=== PATIENT | male | born 1975 | race Hispanic/Latino ===

== ENCOUNTER 2020-05-16 12:43 | Inpatient (IN) | payer OTHER, SELFPAY ==
[2020-05-16 13:39] LABS: Mean Corpuscular HGB CONC 33.1 g/dL (32.0-36.0); Mean Corpuscular Hemoglobin 40.5 pg (27.0-31.0); Platelet Count 155 thou/uL (130-400); RBC Distribution Width 18.4 % (11.5-14.5); White Blood Cell (WBC) Count 13.1 thou/uL (4.8-10.8)
[2020-05-16 13:45] LABS: ALT (SGPT) 156 U/L (8-55); AST (SGOT) 465 U/L (5-34); Albumin 2.1 g/dL (3.5-5.0); Alkaline Phosphatase 236 U/L (40-110); Anion Gap 16 mmol/L (10-20); BUN (Urea Nitrogen) 33 mg/dL (8.9-20.6); Calc. Creatinine Clearance 0 mL/min (70-130); Carbon Dioxide 23 mmol/L (22-29); Chloride 90 mmol/L (98-107); Estimated GFR-MDRD 32; Globulin 4.9 g/dL (2.4-3.5); Glucose 178 mg/dL (70-105); Potassium 3.4 mmol/L (3.5-5.1); Sodium 126 mmol/L (136-145)
[2020-05-16 13:46] LABS: ALT (SGPT) 155 U/L (8-55); AST (SGOT) 464 U/L (5-34); Albumin 2.1 g/dL (3.5-5.0); Alkaline Phosphatase 235 U/L (40-110); Protein, Total 6.9 g/dL (6.0-8.3)
[2020-05-16 13:55] LABS: Bilirubin, Total 30.3 mg/dL (0.2-1.2)
[2020-05-16 13:56] LABS: Bilirubin, Total 30.2 mg/dL (0.2-1.2)
[2020-05-16 14:12] LABS: Band 3 % (5-11); Eosinophils 1 % (0-10); Lymphocytes 4 % (21-51); MDiff Complete? YES; Macrocytosis MODERATE=16-30 cells (100X) (0-5/hpf); Metamyelocyte 1 % (0-0); Monocytes 8 % (0-10); Neutrophil 82 % (42-75); Platelet Morphology Comment Appears Adequate; Polychromasia SLIGHT = 2-3 cells (100X) (0-2/hpf); Target Cells SLIGHT = 2-5 cells (100X) (0-1/hpf)
[2020-05-16 15:03] LABS: Bilirubin, Direct Greater than 20.0 mg/dL (0.1-0.3)
[2020-05-16] MEDS ORDERED: Lorazepam 1 MG TAB PO PRN (17:10)
[2020-05-16] MEDS ORDERED: Ondansetron PF 4 MG/2 ML Vial IVP PRN (17:10)
[2020-05-16] MEDS ORDERED: Lorazepam 2 MG/ML VIAL SLOW IVP PRN (17:10)
[2020-05-16] MEDS ORDERED: Ondansetron ODT 4 MG TAB PO PRN (17:10)
[2020-05-16 17:12] LABS: Prothrombin Time 113.4 sec (12.0-14.7)
[2020-05-16 17:37] VITALS: BMI 43.0
[2020-05-16] MEDS: cefTRIAXone\\ROCEPHIN 1 GM in Sodium Chloride 0.9% 100 ML IVPB SCH (17:56)
[2020-05-16] MEDS ORDERED: Phytonadione 10 MG/ML AMP PO SCH (18:00)
--- NOTE | 2020-05-16 18:03 | PDOC.EVN ---
Event Note - Event Note Event Note: The INR resulted was reviewed. The PT is too high to calculate a discriminate function. I have called [facility] applications [facility] and spoke with Dr. Fay to make him aware of the patient. He will review the chart and modify orders if needed, and will see the patient in the AM. Should he decompensate, arrangements should be made to transfer to a transplant center.
--- NOTE | 2020-05-16 18:59 | RAD ---
PORTABLE CHEST: 05/16/20 HISTORY: Elevated white count. COMPARISON: 06/23/15 study. Heart size is within normal limits for portable technique. Some slightly increased markings in the maria m ng bases suggest some atelectatic change. No infiltrative process. IMPRESSION: Suggestion of some subsegmental atelectasis in the lung bases. POS: OFF
[2020-05-16] MEDS: Albumin 25% 25 GM/100 ML BOT IVPB SCH (21:11)
--- NOTE | 2020-05-16 22:13 | HP ---
PRIMARY CARE PHYSICIAN: The patient currently does not have a primary care physician. CHIEF COMPLAINT: Feeling weaker and bad for the last month and my eyes are turning yellow. HISTORY OF PRESENT ILLNESS: Mr. Dalton is a very pleasant 44-year-old gentleman, who has a history of alcohol abuse. I actually treated him about 4 years ago for severe alcoholic hepatitis. He says that he had been sober for a good year or more after he left the hospital and had not been drinking. About a year and a half ago, he started drinking again. He says that he normally would drink about a pint of [employer] liquor either every day or every other day. He says over the summer, his drinking got to be more and he started to note that he felt bad about a month ago and was starting to get weaker. He noticed that his eyes started to turn yellow and he says that his skin started looking yellow too. He noticed some dark urine. His abdomen seemed to be gassy and bloated. He denies any nausea or vomiting. No hematemesis. No blood in the stools, but he did note occasional dark stool. No fevers or chills. He denied having any leg swelling but feels like he has decreased muscle tone in his legs. As a result of these findings, he came to the ER for evaluation and he was found to have elevated transaminases as well as a total bilirubin of greater than 30, and he is being admitted for further evaluation and treatment. REVIEW OF SYSTEMS: All systems were reviewed and are negative except for that mentioned in the history of present illness. PAST MEDICAL HISTORY: Significant for alcoholic cirrhosis, dyslipidemia, hypertension, and history of esophageal varices. PAST SURGICAL HISTORY: He has had a hernia repair. ALLERGIES: NO KNOWN DRUG ALLERGIES. SOCIAL HISTORY: He drinks about a pint of Stalin [employer] liquor daily to every other day. He says that he stopped drinking about 2 weeks ago due to feeling bad and starting to feel like it was getting to his conscious. He denies any tobacco use. He is single, has no children and he lives with his uncle. However, he would want his sister, Aurora Verduzco, to be his surrogate decision maker. He is a full code. FAMILY HISTORY: His brother's father had colon cancer. CURRENT MEDICATIONS: None. PHYSICAL EXAMINATION: GENERAL: He is alert and oriented. He appears to be in no acute distress. He is morbidly obese. VITAL SIGNS: Blood pressure was 106/50, heart rate is in the 70s, respiratory rate of 16, and he is afebrile. HEENT: His pupils are equal, round, and reactive. His sclera are bright yellow and jaundice. Throat, he has a mask on. NECK: There is no adenopathy, no bruits. LUNGS: Clear to auscultation. There is no wheezing, no rales, no rhonchi. CARDIOVASCULAR: He has a normal S1 and S2. There is no S3 or S4. No murmurs, clicks, or rubs. ABDOMEN: Distended. There is a positive fluid wave. It is nontender. However, there was no rebound, no guarding. Bowel sounds are present. I could not palpate any spleen. There is no evidence of organomegaly. EXTREMITIES: There is no clubbing or cyanosis. No edema. No joint effusions. No calf tenderness. NEUROLOGICAL: The exam is grossly nonfocal. His muscle strength is 5/5 in both his upper and lower extremities. There is no evidence of any asterixis. SKIN AND INTEGUMENT: Other than being jaundice, there are no skin lesions. LABORATORY DATA: Sodium is 126, potassium is 3.4, chloride is 90, CO2 is 23, BUN of 33, creatinine 2.2, glucose is 178, total bilirubin is 30.3, AST is 465, ALT is 156, alkaline phosphatase is 236, albumin 2.1, direct bilirubin was 20. White blood cell count 13.1, hemoglobin 15, hematocrit is 45.3, and platelet count is 155. MCV was 122. ASSESSMENT: This is a 44-year-old gentleman, who presents with jaundice and elevated transaminases. He has a history of alcohol abuse and likely this represents an alcoholic hepatitis. PLAN: For the alcoholic hepatitis, we will need to get PT and INR in order to calculate a discriminant function to see whether or not he would be a candidate for IV steroids or prednisolone. He needs an abdominal ultrasound to assess for ascites. If there is ascites, then this needs to be sampled to rule out spontaneous bacterial peritonitis. Given that he has a history of cirrhosis, we will go ahead and start him empirically on IV Rocephin pending the results because it may be until tomorrow and before he can have the paracentesis done and if he had significant coagulopathy, this would have to be corrected first. We will also consult Gastroenterology and place him on ASE protocol. Once he is more stabilized, then conversations can be made about abstaining from alcohol and what resources we can give him at discharge. He does have a history of esophageal varices and therefore will need to monitor his H and H closely and he will be placed on IV Protonix. Job ID: [id number]
[2020-05-17] MEDS: Octreotide Acetate 1,250 MCG in Sodium Chloride 0.9% 250 ML 250 ML IVPB SCH (00:52)
[2020-05-17 04:55] LABS: INR-International Normal Ratio 1.9; Prothrombin Time 21.7 sec (12.0-14.7)
[2020-05-17 05:41] LABS: ALT (SGPT) 132 U/L (8-55); AST (SGOT) 390 U/L (5-34); Albumin 2.1 g/dL (3.5-5.0); Alkaline Phosphatase 203 U/L (40-110); Anion Gap 15 mmol/L (10-20); BUN (Urea Nitrogen) 41 mg/dL (8.9-20.6); Bilirubin, Direct Greater than 10.0 mg/dL (0.1-0.3); Calc. Creatinine Clearance 48 mL/min (70-130); Calcium 7.8 mg/dL (7.8-10.44); Carbon Dioxide 25 mmol/L (22-29); Chloride 91 mmol/L (98-107); Estimated GFR-MDRD 19; Glucose 111 mg/dL (70-105); Potassium 3.5 mmol/L (3.5-5.1); Protein, Total 6.3 g/dL (6.0-8.3); Sodium 127 mmol/L (136-145)
[2020-05-17 05:47] LABS: #Basophils 0.1 thou/uL (0.0-0.2); #Eosinphils 0.1 thou/uL (0.0-0.7); #Lymphocytes 1.1 thou/uL (1.20-3.40); #Neutrophils 7.6 thou/uL (1.40-6.50); %Basophils 0.6 % (0.0-1.0); %Eosinophils 1.4 % (0.0-10.0); %Lymphocytes 10.8 % (21.0-51.0); %Neutrophils 77.1 % (42.0-75.0); Band 2 % (5-11); Eosinophils 2 % (0-10); Hemoglobin 13.4 g/dL (14.0-18.0); Hypochromia MODERATE=16-30 cells (100X) (0-5/hpf); Lymphocytes 5 % (21-51); MDiff Complete? YES; Macrocytosis MODERATE=16-30 cells (100X) (0-5/hpf); Mean Corpuscular HGB CONC 33.9 g/dL (32.0-36.0); Mean Corpuscular Hemoglobin 41.9 pg (27.0-31.0); Mean Platelet Volume 9.5 fL (7.4-10.4); Monocytes 6 % (0-10); Neutrophil 85 % (42-75); Platelet Count 110 thou/uL (130-400); Platelet Morphology Comment Appears Decreased; RBC Distribution Width 18.2 % (11.5-14.5); Red Blood Cell (RBC) Count 3.19 mill/uL (4.70-6.10); Target Cells SLIGHT = 2-5 cells (100X) (0-1/hpf); White Blood Cell (WBC) Count 9.9 thou/uL (4.8-10.8)
[2020-05-17 08:05] LABS: Bilirubin Large (Negative); Blood, Urine Small (Negative); Ketone, Urine 15 mg/dL (Negative); Protein, Urine (Dipstick) 100 mg/dL (Neg-Trace); Specific Gravity, Urine 1.025 (1.005-1.030)
[2020-05-17 08:17] LABS: Clarity Turbid (Clear); Leukocyte Unable to Interpret (Negative); Nitrite Negative (Negative)
[2020-05-17 08:21] LABS: Glucose, Urine (Dipstick) Negative (Negative)
[2020-05-17 08:23] LABS: Bacteria/HPF 3+ HPF (None Seen); WBC/HPF 0-3 HPF (0-3)
[2020-05-17] MEDS: Thiamine 100 MG TAB PO SCH (08:58)
[2020-05-17] MEDS: Albumin 25% 25 GM/100 ML BOT IVPB SCH ×4 (08:58→20:24)
[2020-05-17] MEDS: Folic Acid 1 MG TAB PO SCH (08:58)
[2020-05-17] MEDS ORDERED: Phytonadione 10 MG/ML AMP PO SCH (09:15)
[2020-05-17] MEDS ORDERED: Multivit, Therapeutic 1 TAB PO SCH (09:15)
[2020-05-17] MEDS ORDERED: Bacteriostatic Water 30 ML VIAL FS PRN (09:22)
--- NOTE | 2020-05-17 10:49 | ULT ---
ULTRASOUND ABDOMEN LIMITED: HISTORY: Evaluate for ascites. COMPARISON: None. FINDINGS: There is some small volume free fluid in the pelvis and abdomen. There is a pocket of fluid in the l eft upper quadrant. IMPRESSION: Small volume free fluid in the pelvis and abdomen with the greatest pocket in the left upper quadrant . There is likely adequate fluid for a diagnostic paracentesis, although a therapeutic paracentesis would not be very beneficial. POS: HOME
--- NOTE | 2020-05-17 11:04 | ULT ---
ULTRASOUND RENAL BILATERAL STANDARD: HISTORY: Acute kidney injury. COMPARISON: None. FINDINGS: Real-time, field scale, and color evaluation of the kidneys and urinary bladder was performed. The urinary bladder is not well seen. The right kidney measures 11.2 x 6.1 x 7.2 cm and the left kid paola measures 11.7 x 7 x 6.5 cm. No renal mass, hydronephrosis, or abnormal calcifications. IMPRESSION: 1. No evidence for obstructive uropathy. 2. Small volume free fluid in the abdomen and pelvis. POS: HOME
[2020-05-17 11:09] LABS: Magnesium 2.5 mg/dL (1.6-2.6); Phosphorus 3.7 mg/dL (2.3-4.7)
[2020-05-17] MEDS ORDERED: Sodium Bicarbonate 2.5 MEQ/5 ML VIAL ONE (11:13)
[2020-05-17] MEDS ORDERED: Lidocaine 1% PF 5 ML VIAL ONE (11:13)
[2020-05-17] MEDS ORDERED: Sodium Chloride 0.9% 10 ML ONE (11:26)
--- NOTE | 2020-05-17 11:39 | ULT ---
US Paracentesis with Imaging History: Ascites Comparison: Ultrasound same day Findings: Patient was brought to the ultrasound suite. All questions were answered. Informed consent obtained. Timeout performed. The patient's right upper quadrant was prepped and draped in normal sterile fashion. After adequate l ocal anesthesia, using a 5 [place] catheter the peritoneal space was accessed. 1600 mL of yellow-colored fluid was removed. Patient tolerated the procedure well without complication. Impression: Technically successful ultrasound-guided paracentesis for diagnostic and therapeutic purp oses.
[2020-05-17 12:33] LABS: SARS-CoV-2 MS2 Positive; SARS-CoV-2 N Gene Negative; SARS-CoV-2 S Gene Negative; SARS-CoV-2 by NAA Not Detected (NotDetected); SARS-CoV-2 orf1ab Negative
[2020-05-17 13:05] LABS: HBSAB Concentration Less than 8.00 mIU/mL; HBSAg Index 0.16 S/CO (0-0.99); Hep B Core Total Ab Non-Reactive (NonReactive); Hep B Surf AB Non-Reactive (NonReactive); Hep B Surf Ag Non-Reactive S/CO (NonReactive); Hep C IgG Ab Non-Reactive (NonReactive); Hep C Index 0.32 S/CO (0-0.79)
[2020-05-17 14:32] LABS: RBC Count-Automated (BF) 340 /cu.mm; WBC/Nucleated-Auto (BF) 306 uL
[2020-05-17 14:57] LABS: BF Color Yellow; Body Fluid Source Ascites Body Fluid; Clarity Hazy (Clear); Tube # EDTA
[2020-05-17 15:53] LABS: BF Segmented Neutrophils 20 %; Cell Count Non Hematic 63 %; Lymphocytes 17 %
[2020-05-17] MEDS: Midodrine HCl 5 MG TAB PO SCH ×2 (16:09→20:28)
--- NOTE | 2020-05-17 17:14 | PDOC.HOSPP ---
- Subjective Encounter Date: 05/17/20 Encounter Time: 10:30 Subjective: Patient seen and examined for severe alcoholic hepatitis with acute kidney injury. Denies any nausea, vomiting, hematemesis or melena. Abdomen distended. Denies any abdominal pain. No fever or chills reported. - Objective Vital Signs & Weight: Vital Signs (12 hours) Temp Pulse Resp BP BP BP Pulse Ox 05/17/20 15:45 98.3 F 86 18 101/56 L 93 L 05/17/20 12:05 98.0 F 90 15 98/52 L 98/52 L 96 05/17/20 07:06 98.1 F 81 18 87/48 L 87/48 L 93 L Weight Admit Weight 282 lb 12.8 oz Weight 282 lb 12.8 oz Result Diagrams: 05/17/20 04:33 05/17/20 04:33 Additional Labs: Laboratory Tests 05/17/20 05/17/20 05/17/20 04:33 04:33 12:07 Total Bilirubin 28.0 H Direct Bilirubin Greater than 10.0 H AST 390 H ALT 132 H Alkaline Phosphatase 203 H Tumor Marker AFP 3.0 Hep Bs Antigen Non-Reactive Hep Bs Antibody Non-Reactive Hep B Core Total Ab Non-Reactive Hepatitis C Antibody Non-Reactive Radiology Reviewed by me: Yes (Chest x-ray negative for infiltrate) EKG Reviewed by me: Yes (Sinus rhythm on telemetry) Hospitalist ROS - Review of Systems Respiratory: denies: cough, dry, shortness of breath, hemoptysis, SOB with excertion, pleuritic pain, sputum, wheezing, other Cardiovascular: denies: chest pain, palpitations, orthopnea, paroxysmal noc. dyspnea, edema, light headedness, other All other systems reviewed; all pertinent +/- noted in HPI/Subj - Medication Medications: Active Medications Generic Name Dose Route Start Last Admin Trade Name Freq PRN Reason Stop Dose Admin Albumin Human 25 gm 05/17/20 09:00 05/17/20 16:09 Albumin 25% IVPB 05/18/20 03:01 25 gm Q6H PARKER Administration Folic Acid 1 mg 05/17/20 09:00 05/17/20 08:58 Folvite PO 1 mg DAILY PARKER Administration Ceftriaxone Sodium 1 gm/ 100 mls @ 200 mls/hr 05/16/20 18:00 05/16/20 17:56 Sodium Chloride IVPB 100 mls Q24HR PARKER Administration Octreotide Acetate 1,250 mcg/ 251.25 mls @ 10.05 mls/hr 05/16/20 18:00 00:52 Sodium Chloride IVPB 251.25 mls INF PARKER Administration 50 MCG/HR Midodrine 5 mg 05/17/20 15:00 05/17/20 16:09 Proamatine PO 5 mg TID PARKER Administration Pantoprazole Sodium 40 mg 05/16/20 18:00 05/16/20 17:56 Protonix PO 40 mg 1800 PARKER Administration Thiamine HCl 100 mg 05/17/20 09:00 05/17/20 08:58 Thiamine PO 100 mg DAILY PARKER Administration - Exam General Appearance: ill appearing Neck: supple, no JVD Heart: RRR, no gallops, no rubs, normal peripheral pulses Respiratory: CTAB, no rales, no ronchi, normal chest expansion Gastrointestinal: soft, normal bowel sounds, no guarding, no rigidity, tender to palpation (Mild generalized), distended Extremities: no cyanosis, no clubbing, 1+ LE edema Neurological: no new deficit Psychiatric: normal affect, A&O x 3 Hosp A/P - Plan DVT proph w/SCDs Generalized weakness Acute liver failure Severe alcoholic hepatitis with elevated discriminant function Acute kidney injurysuspected hepatorenal syndrome Hyponatremia Hypokalemia Portal hypertensive gastropathy with last EGD in 2016 Coagulopathy due to liver failure Morbid obesity with a BMI of 43 Chronic alcoholism Hypertension Dyslipidemia Plan: 05/17 Continue empiric antibiotic with octreotide. Continue IV albumin. Paracentesis today. Will send fluid for cell count, differential, culture, glucose, albumin, and protein. Case discussed with gastroenterology and nephrology. Recheck labs in a.m. Continue thiamine with folic acid. Vitamin K to correct coagulopathy. Transfer to medical. Monitor for alcohol withdrawal. Continue alcohol withdrawal protocol.
[2020-05-17] MEDS: cefTRIAXone\\ROCEPHIN 1 GM in Sodium Chloride 0.9% 100 ML IVPB SCH (17:26)
--- NOTE | 2020-05-17 18:51 | CON ---
DATE OF CONSULTATION: 05/17/2020 CONSULTING PHYSICIAN: Dr. Giron REASON FOR CONSULTATION: Acute kidney injury. REASON FOR ADMISSION: Swelling. HISTORY OF PRESENT ILLNESS: This is a 44-year-old male with history of alcohol use, alcoholic cirrhosis, hypertension, came to the hospital with swelling, was found to have elevated creatinine and Nephrology consulted. The patient is having tap also this morning. No fever or chills. PAST MEDICAL HISTORY: Positive for alcoholic cirrhosis, hyperlipidemia, hypertension, esophageal varices. PAST SURGICAL HISTORY: Hernia repair. HOME MEDICATIONS: Reviewed. ALLERGIES: NO KNOWN DRUG ALLERGIES. SOCIAL HISTORY: He is alcoholic and single, no children. FAMILY HISTORY: Positive for colon cancer. REVIEW OF SYSTEMS: CONSTITUTIONAL: Negative for weight loss or gain, ability to conduct usual activities. SKIN: Negative for rash, itching. EYES: Negative for double vision, pain. ENT/MOUTH: Negative for nose bleeding, neck stiffness, pain, tenderness. CARDIOVASCULAR: Negative for palpitations, dyspnea on exertion, orthopnea. RESPIRATORY: Negative for shortness of breath, wheezing, cough, hemoptysis, fever or night sweats. GASTROINTESTINAL: Negative for poor appetite, abdominal pain, heartburn, nausea, vomiting, constipation, or diarrhea. GENITOURINARY: Negative for urgency, frequency, dysuria, nocturia. MUSCULOSKELETAL: Negative for pain, swelling. NEUROLOGIC/PSYCHIATRIC: Negative for anxiety, depression. ALLERGY/IMMUNOLOGIC: Negative for skin rash, bleeding tendency. PHYSICAL EXAMINATION: GENERAL: This is a well-built male, in no apparent distress. VITAL SIGNS: Temperature pulse 90, respiratory rate 18, blood pressure 98/52. HEENT: Atraumatic, normocephalic. Oral mucosa is moist. NECK: Supple. CV: S1, S2. Rate and rhythm regular. RESPIRATORY: Clear. GI: Abdomen is soft. MUSCULOSKELETAL: 2+ edema. DERMATOLOGIC: No skin rash. NEUROLOGICAL: Alert and awake. PSYCHIATRIC: Mood and affect normal. LABORATORY DATA: Hemoglobin is 13.4. Potassium 3.5, sodium is 127, BUN is 41, and creatinine is 3.4. Albumin 2.1. ASSESSMENT AND PLAN: 1. Acute kidney injury, most likely secondary to hepatorenal syndrome with poor prognosis, given hyponatremia and renal failure. Plan is to try albumin 25 g q.6 x8 doses and monitor renal function. Could consider midodrine and octreotide. Follow up with GI also. 2. Hyponatremia. 3. Hypokalemia, better. 4. Hyperbilirubinemia. 5. Elevated liver enzymes. 6. Hypoalbuminemia. 7. Anemia. 8. Coagulopathy. 9. Alcoholic cirrhosis. 10. Edema. 11. Ascites. Prognosis is very poor. We will try albumin. No significant improvement. We will follow up with GI also. Avoid nephrotoxins and diuretics at this point. We will follow. Thank you for the consult. Job ID: [id number]
--- NOTE | 2020-05-17 20:26 | CON ---
DATE OF CONSULTATION: 05/17/2020 REASON FOR CONSULTATION: Alcoholic hepatitis and cirrhosis. CONSULTING PROVIDER: Prabhakar Joseph MD HISTORY OF PRESENT ILLNESS: The patient is a 44-year-old male, with past medical history of hyperlipidemia, hypertension, and prior episode of alcoholic hepatitis and cirrhosis complicated by esophageal varices, presenting with complaints of weakness and malaise. The patient initially presented to the hospital with complaints of increased generalized weakness and malaise that had been present for the last month. On interviewing the patient, he states that approximately 1 month ago, he was attending multiple birthday parties with his family and had increasing amounts of alcohol consumed during those parties. After those parties, he noticed that he began feeling much more bloated with increased flatulence in addition to having the occurrence of change in his bowel habits. Over the last few weeks, he also noticed that his skin and his eyes began more yellow in coloration until finally the patient had 3 to 4 semi-solid black stools shortly before admission, which prompted him to seek healthcare assistance. During the same time period, he also endorsed an increased weight loss of approximately 50 pounds since January of this year, but had been attempting to significantly change his diets by significant reduction and consumption of red meats and eating more fruits and vegetables. He also states that he had been drinking about a pint of [employer] either everyday or every other day and drinking approximately 12 beers daily per day on the weekends. He also adds that his last drink was approximately 2 weeks ago (of note, the patient was admitted to the hospital in December 2015 with very similar complaints of general malaise and weakness with severe alcoholic hepatitis at that time, he responded well to medical management with prednisolone with followup in the GI clinic showing improvement in his clinical and laboratory status). He did also have an EGD performed at that time on December 13, 2015, which showed small (grade 1) esophageal varices in addition to portal hypertensive gastropathy and LA grade A reflux mediated erosive esophagitis. There was no mention of gastric varices during that examination. REVIEW OF SYSTEMS: A 10-category review of systems was obtained with all responses negative, except for the pertinent positives as listed in HPI. PAST MEDICAL HISTORY: As per HPI. PAST SURGICAL HISTORY: Inguinal hernia repair. FAMILY HISTORY: He denied any GI malignancies, but there was mention in the chart of his brother's father having colon cancer (unclear if this is a stepbrother). OUTPATIENT MEDICATIONS: None. ALLERGIES: NO KNOWN DRUG ALLERGIES. PHYSICAL EXAMINATION: VITAL SIGNS: Temperature 98.3, pulse 86, blood pressure 101/56, respiratory rate 18, and saturating 93% on room air. GENERAL: The patient is lying in bed, in no acute distress. Alert and oriented x4. HEENT: Normocephalic and atraumatic. Positive scleral icterus as well as yellowing of his face and skin. NECK: Supple. No JVD noted. CARDIOVASCULAR: Regular rate and rhythm with no discernible murmurs, gallops, or rubs. RESPIRATORY: Clear to auscultation bilaterally with no discernible wheezes or rales. ABDOMEN: Normoactive bowel sounds. Soft. Moderate abdominal distention with possible shifting dullness. No tenderness to palpation. EXTREMITIES: Trace bilateral lower extremity edema only in the feet. LABORATORY DATA: CBC with a white blood cell count of 9.9, hemoglobin 13.4, hematocrit 39.5, and platelets 110. INR 1.9. Chemistry with a sodium of 127, potassium 3.5, chloride 91, CO2 of 25, BUN 41, creatinine 3.46, glucose 111, AST 390, ALT 132, alkaline phosphatase 203, total bilirubin 28, with a calculated MELD score of 39. IMAGING DATA: Right upper quadrant ultrasound was obtained on May 17, 2020, which showed some small free-fluid within the pelvis and abdomen with a pocket of fluid in the left upper quadrant. He also underwent paracentesis on May 17, 2020, with approximately 1.6 L of fluid removed. Renal ultrasound was obtained on May 17, 2020, which showed no evidence of obstructive uropathy and normal appearance of the kidneys. ASSESSMENT AND PLAN: The patient is a 44-year-old male, with past medical history of hyperlipidemia, hypertension, prior alcoholic hepatitis and cirrhosis complicated by esophageal varices, now presenting with recurrence of alcoholic hepatitis in addition to cirrhosis with ascites and lower extremity edema. Alcoholic hepatitis. On chart review, the patient had a bout of severe alcoholic hepatitis in November of 2015, but responded well to prednisolone therapy x30 days with outpatient followup in the GI Clinic showing normalization of his LFTs and renal function (the patient had an elevated creatinine during that admission that got as high as 4). He is now presenting with a repeat bout of what appears to be alcoholic hepatitis as evidenced by his elevated bilirubin, INR, and AST to ALT ratio in roughly ratio. At the current time, his calculated MELD score is 39 with a discriminant function much higher than 32. He has had blood cultures, chest x-ray, and urinalysis that have been negative for infection thus far. RECOMMENDATIONS: 1. We would continue patient on albumin administration three times daily. 2. Continue patient on octreotide drip in light of possible hepatorenal syndrome related to his alcoholic hepatitis. 3. We would continue the patient on PPI daily. 4. Agree with administration of vitamin K as part of reversal of the patient's coagulopathy. 5. We would start the patient on methylprednisolone 40 mg daily given his discriminant function higher than 32 and no evidence of chronic or active infection. 6. We would start the patient on midodrine 5 mg t.i.d. and advance to 10 mg tomorrow in light of possible hepatorenal syndrome. 7. We would agree with consultation of Nephrology Service for further recommendations regarding acute kidney injury/worsening renal function. 8. Given stable H and H thus far, upper endoscopy is not indicated at this time. Given his significantly elevated MELD score of 39, his long-term prognosis is extremely poor. We will continue to follow, but would not be unexpected during this admission. Job ID: [id number]
[2020-05-17] MEDS: Cyanocobalamin (Vitamin B-12) 1,000 MCG TAB PO SCH (20:28)
[2020-05-17] MEDS: pyridOXINE 50 MG (B6) TAB PO SCH (20:28)
[2020-05-18] MEDS: Octreotide Acetate 1,250 MCG in Sodium Chloride 0.9% 250 ML 250 ML IVPB SCH (00:19)
[2020-05-18] MEDS: Albumin 25% 25 GM/100 ML BOT IVPB SCH ×4 (03:03→21:02)
[2020-05-18 05:51] LABS: INR-International Normal Ratio 1.8; Prothrombin Time 21.2 sec (12.0-14.7)
[2020-05-18 06:00] LABS: ALT (SGPT) 113 U/L (8-55); AST (SGOT) 307 U/L (5-34); Albumin 2.7 g/dL (3.5-5.0); Alkaline Phosphatase 166 U/L (40-110); Protein, Total 6.1 g/dL (6.0-8.3)
[2020-05-18 06:12] LABS: Anion Gap 16 mmol/L (10-20); BUN (Urea Nitrogen) 53 mg/dL (8.9-20.6); Calc. Creatinine Clearance 30 mL/min (70-130); Calcium 7.9 mg/dL (7.8-10.44); Carbon Dioxide 20 mmol/L (22-29); Chloride 91 mmol/L (98-107); Estimated GFR-MDRD 11; Glucose 130 mg/dL (70-105); Magnesium 2.4 mg/dL (1.6-2.6); Phosphorus 3.5 mg/dL (2.3-4.7); Potassium 3.4 mmol/L (3.5-5.1); Sodium 124 mmol/L (136-145)
[2020-05-18 06:14] LABS: Bilirubin, Total 35.4 mg/dL (0.2-1.2)
[2020-05-18 06:19] LABS: #Basophils 0.1 thou/uL (0.0-0.2); #Eosinphils 0.2 thou/uL (0.0-0.7); #Lymphocytes 1.5 thou/uL (1.20-3.40); #Monocytes 0.8 thou/uL (0.11-0.59); #Neutrophils 7.5 thou/uL (1.40-6.50); %Basophils 0.7 % (0.0-1.0); %Lymphocytes 14.6 % (21.0-51.0); %Neutrophils 74.7 % (42.0-75.0); Elliptocytes SLIGHT = 2-5 cells (100X) (0-1/hpf); Eosinophils 1 % (0-10); Hemoglobin 12.7 g/dL (14.0-18.0); Lymphocytes 7 % (21-51); MDiff Complete? YES; Macrocytosis MODERATE=16-30 cells (100X) (0-5/hpf); Mean Corpuscular Hemoglobin 41.2 pg (27.0-31.0); Mean Platelet Volume 9.9 fL (7.4-10.4); Monocytes 6 % (0-10); Neutrophil 86 % (42-75); Platelet Count 100 thou/uL (130-400); Platelet Morphology Comment Appears Decreased; RBC Distribution Width 18.6 % (11.5-14.5); Red Blood Cell (RBC) Count 3.09 mill/uL (4.70-6.10); Target Cells SLIGHT = 2-5 cells (100X) (0-1/hpf)
[2020-05-18 07:12] LABS: Bilirubin, Direct Greater than 20.0 mg/dL (0.1-0.3)
[2020-05-18] MEDS: Thiamine 100 MG TAB PO SCH (08:31)
[2020-05-18] MEDS: Folic Acid 1 MG TAB PO SCH (08:31)
[2020-05-18] MEDS: Midodrine HCl 5 MG TAB PO SCH ×3 (08:31→21:03)
[2020-05-18] MEDS ORDERED: Phytonadione 10 MG/ML AMP PO SCH (09:00)
[2020-05-18] MEDS ORDERED: methylPREDNISolone Sod Succ 40 MG VIAL IVP SCH (09:00)
[2020-05-18] MEDS ORDERED: Midodrine HCl 5 MG TAB PO SCH (09:00)
[2020-05-18] MEDS ORDERED: Multivit, Therapeutic 1 TAB PO SCH (09:00)
--- NOTE | 2020-05-18 12:27 | PDOC.HOSPP ---
- Subjective Encounter Date: 05/18/20 Encounter Time: 11:00 - Objective Vital Signs & Weight: Vital Signs (12 hours) Temp Pulse Resp BP BP Pulse Ox 05/18/20 08:00 98.3 F 83 18 130/63 94 L 05/18/20 04:00 97.9 F 80 18 121/60 121/60 92 L Weight Admit Weight 282 lb 12.8 oz Weight 282 lb 12.8 oz I&O: 05/17/20 05/18/20 05/19/20 06:59 06:59 06:59 Intake Total 432 Output Total 300 Balance 132 Result Diagrams: 05/18/20 05:24 05/18/20 05:24 Hospitalist ROS - Medication Medications: Active Medications Generic Name Dose Route Start Last Admin Trade Name Keny PRN Reason Stop Dose Admin Albumin Human 25 gm 05/18/20 09:00 05/18/20 09:26 Albumin 25% IVPB 05/19/20 09:01 25 gm Q6H PARKER Administration Cyanocobalamin 1,000 mcg 05/17/20 21:00 05/17/20 20:28 Vitamin B-12 PO 1,000 mcg HS PARKER Administration Folic Acid 1 mg 05/17/20 09:00 05/18/20 08:31 Folvite PO 1 mg DAILY PARKER Administration Ceftriaxone Sodium 1 gm/ 100 mls @ 200 mls/hr 05/16/20 18:00 05/17/20 17:26 Sodium Chloride IVPB 100 mls Q24HR PARKER Administration Octreotide Acetate 1,250 mcg/ 251.25 mls @ 10.05 mls/hr 05/16/20 18:00 00:19 Sodium Chloride IVPB 251.25 mls INF PARKER Administration 50 MCG/HR Lactulose 10 gm 05/18/20 09:00 05/18/20 09:12 Lactulose PO 10 gm BID PARKER Administration Methylprednisolone Sodium Succinate 40 mg 05/18/20 09:00 05/18/20 08:32 Solu-Medrol IVP 40 mg DAILY PARKER Administration Multivitamins 1 tab 05/18/20 09:00 05/18/20 08:31 Theragran PO 1 tab DAILY PARKER Administration Pantoprazole Sodium 40 mg 05/16/20 18:00 05/17/20 17:26 Protonix PO 40 mg 1800 PARKER Administration Phytonadione 5 mg 05/18/20 09:00 05/18/20 08:32 Aquamephyton PO 05/19/20 09:01 5 mg DAILY PARKER Administration Pyridoxine HCl 50 mg 05/17/20 21:00 05/17/20 20:28 Vitamin B 6 PO 50 mg HS PARKER Administration Thiamine HCl 100 mg 05/17/20 09:00 05/18/20 08:31 Thiamine PO 100 mg DAILY PARKER Administration Hosp A/P - Plan Generalized weakness Acute liver failure Severe alcoholic hepatitis with elevated discriminant function Acute kidney injurysuspected hepatorenal syndrome Hyponatremia Hypokalemia Portal hypertensive gastropathy with last EGD in 2015 Coagulopathy due to liver failure Morbid obesity with a BMI of 43 Chronic alcoholism Hypertension Dyslipidemia Aurora (sister) [phone] Plan: 05/17 Continue empiric antibiotic with octreotide. Continue IV albumin. Paracentesis today. Will send fluid for cell count, differential, culture, glucose, albumin, and protein. Case discussed with gastroenterology and nephrology. Recheck labs in a.m. Continue thiamine with folic acid. Vitamin K to correct coagulopathy. Transfer to medical. Monitor for alcohol withdrawal. Continue alcohol withdrawal protocol.
--- NOTE | 2020-05-18 12:55 | PDOC.HOSPP ---
- Subjective Encounter Date: 05/18/20 Encounter Time: 11:00 Subjective: Patient seen and examined for acute liver failure. Mild generalized abdominal pain without any nausea. Had bowel movement last night which was formed. Denies any hematemesis, melena or hematochezia. Mentation at baseline. - Objective Vital Signs & Weight: Vital Signs (12 hours) Temp Pulse Resp BP BP Pulse Ox 05/18/20 08:00 98.3 F 83 18 130/63 94 L 05/18/20 04:00 97.9 F 80 18 121/60 121/60 92 L Weight Admit Weight 282 lb 12.8 oz Weight 282 lb 12.8 oz I&O: 05/17/20 05/18/20 05/19/20 06:59 06:59 06:59 Intake Total 432 Output Total 300 Balance 132 Result Diagrams: 05/18/20 05:24 05/18/20 05:24 Additional Labs: Microbiology 05/17/20 11:30 Ascites Fluid Body Fluid Culture - Preliminary 05/17/20 07:25 Urine clean catch Urine Culture - Preliminary NO GROWTH AT 24 HOURS 05/16/20 18:21 Venous blood - Right Hand Blood Culture - Preliminary NO GROWTH AT 48 HOURS 05/16/20 18:21 Venous blood - Left Arm Blood Culture - Preliminary NO GROWTH AT 48 HOURS Laboratory Tests 05/16/20 05/17/20 05/17/20 17:20 08:51 08:51 PT INR Total Bilirubin Direct Bilirubin AST ALT Alkaline Phosphatase Fluid Clarity Fluid WBC (Auto) Fluid RBC (Auto) Fluid Seg Neutrophil % Fluid Glucose 124 Fluid Total Protein Less than 1.0 COVID-19 PCR Not Detected Hep Bs Antigen Hep Bs Antibody 05/17/20 05/17/20 05/18/20 11:30 12:07 05:24 PT 21.2 H INR 1.8 Total Bilirubin Direct Bilirubin AST ALT Alkaline Phosphatase Fluid Clarity Hazy H Fluid WBC (Auto) 306 Fluid RBC (Auto) 340 Fluid Seg Neutrophil % 20 Fluid Glucose Fluid Total Protein COVID-19 PCR Hep Bs Antigen Non-Reactive Hep Bs Antibody Non-Reactive 05/18/20 05:24 PT INR Total Bilirubin 35.4 H Direct Bilirubin Greater than 20.0 H AST 307 H ALT 113 H Alkaline Phosphatase 166 H Fluid Clarity Fluid WBC (Auto) Fluid RBC (Auto) Fluid Seg Neutrophil % Fluid Glucose Fluid Total Protein COVID-19 PCR Hep Bs Antigen Hep Bs Antibody Radiology Reviewed by me: Yes (Paracentesis reviewed) Hospitalist ROS - Review of Systems Respiratory: denies: cough, dry, shortness of breath, hemoptysis, SOB with excertion, pleuritic pain, sputum, wheezing, other Cardiovascular: denies: chest pain, palpitations, orthopnea, paroxysmal noc. dyspnea, edema, light headedness, other - Medication Medications: Active Medications Generic Name Dose Route Start Last Admin Trade Name Freq PRN Reason Stop Dose Admin Albumin Human 25 gm 05/18/20 09:00 05/18/20 09:26 Albumin 25% IVPB 05/19/20 09:01 25 gm Q6H PARKER Administration Cyanocobalamin 1,000 mcg 05/17/20 21:00 05/17/20 20:28 Vitamin B-12 PO 1,000 mcg HS PARKER Administration Folic Acid 1 mg 05/17/20 09:00 05/18/20 08:31 Folvite PO 1 mg DAILY PARKER Administration Ceftriaxone Sodium 1 gm/ 100 mls @ 200 mls/hr 05/16/20 18:00 05/17/20 17:26 Sodium Chloride IVPB 100 mls Q24HR PARKER Administration Octreotide Acetate 1,250 mcg/ 251.25 mls @ 10.05 mls/hr 05/16/20 18:00 00:19 Sodium Chloride IVPB 251.25 mls INF PARKER Administration 50 MCG/HR Lactulose 10 gm 05/18/20 09:00 05/18/20 09:12 Lactulose PO 10 gm BID PARKER Administration Methylprednisolone Sodium Succinate 40 mg 05/18/20 09:00 05/18/20 08:32 Solu-Medrol IVP 40 mg DAILY PARKER Administration Multivitamins 1 tab 05/18/20 09:00 05/18/20 08:31 Theragran PO 1 tab DAILY PARKER Administration Pantoprazole Sodium 40 mg 05/16/20 18:00 05/17/20 17:26 Protonix PO 40 mg 1800 PARKER Administration Phytonadione 5 mg 05/18/20 09:00 05/18/20 08:32 Aquamephyton PO 05/19/20 09:01 5 mg DAILY PARKER Administration Pyridoxine HCl 50 mg 05/17/20 21:00 05/17/20 20:28 Vitamin B 6 PO 50 mg HS PARKER Administration Thiamine HCl 100 mg 05/17/20 09:00 05/18/20 08:31 Thiamine PO 100 mg DAILY PARKER Administration - Exam General Appearance: ill appearing General - other findings: Jaundice Neck: supple, no JVD Heart: RRR, no gallops, no rubs, normal peripheral pulses Respiratory: CTAB, no wheezes, no rales Respiratory - other findings: Diminished air entry at bases Gastrointestinal: soft, no guarding, no rigidity, distended Extremities: no cyanosis, no clubbing Neurological: no new deficit Psychiatric: normal affect, A&O x 3 Hosp A/P - Plan DVT proph w/SCDs Generalized weakness Acute liver failure Severe alcoholic hepatitis with elevated discriminant function Acute kidney injury due to hepatorenal syndrome Hyponatremia Hypokalemia History of alcoholic cirrhosis Portal hypertensive gastropathy with last EGD in 2015 Coagulopathy due to liver failure Morbid obesity with a BMI of 43 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 Continue IV ceftriaxone for SBP prophylaxis. SBP ruled out. Midodrine dose increased. Continue thiamine, folic acid with multivitamin. Monitor for alcohol withdrawal. Renal function worsening. Case discussed with nephrology and gastroenterology. Not a candidate for transfer to transplant candidate due to recent alcohol abuse. With patient's permission I discussed with sister Aurora sister [phone]. Patient's sister and mother are currently in [place]. They may come to visit him due to worsening prognosis. 05/17 Continue empiric antibiotic with octreotide. Continue IV albumin. Paracentesis today. Will send fluid for cell count, differential, culture, glucose, albumin, and protein. Case discussed with gastroenterology and nephrology. Recheck labs in a.m. Continue thiamine with folic acid. Vitamin K to correct coagulopathy. Transfer to medical. Monitor for alcohol withdrawal. Continue alcohol withdrawal protocol.
--- NOTE | 2020-05-18 14:34 | PRG ---
DATE OF SERVICE: 05/18/2020 SUBJECTIVE: Patient was seen and examined at bedside and overnight events noted. Patient denies any shortness of breath or chest pain or palpitation. No history of nausea or vomiting or diarrhea or fever or chills or cramps. OBJECTIVE: GENERAL: This is a well-built male, in no apparent distress. VITAL SIGNS: Temperature 97.8. Heart Rate 84. Respiratory rate blood pressure 132/64. HEENT: Icterus present. NECK: Supple. CARDIOVASCULAR: S1, S2 heard. Rate and rhythm regular. RESPIRATORY: Clear to auscultation. GASTROINTESTINAL: Distended. MUSCULOSKELETAL: 2+ edema. DERMATOLOGIC: Icterus present. NEUROLOGIC: Alert and awake and oriented x3. No focal neurologic deficits. Moving all the extremities. PSYCHIATRIC: Mood and affect normal. LABORATORY DATA: Sodium 125, potassium 3.4, BUN is 53, and creatinine is 5.5. ASSESSMENT AND PLAN: 1. Acute kidney injury, getting worse secondary to hepatorenal syndrome, not responding to albumin and other measures including midodrine and octreotide. We will follow. GI is following too. The patient has an elevated MELD score, which puts him high risk for mortality. I discussed with Dr. Giron and is going to convey that to the family. I did talk with the patient also. 2. Hyponatremia. 3. Hypokalemia. 4. Hyperbilirubinemia. 5. Elevated liver enzymes and coagulopathy. 6. Hypoalbuminemia. 7. Anemia. 8. Alcoholic cirrhosis. 9. Ascites. 10. Edema. 11. Anasarca. Prognosis is extremely poor with high risk for mortality. Continue discussion with the family. We will follow. Job ID: [id number]
[2020-05-18] MEDS: cefTRIAXone\\ROCEPHIN 1 GM in Sodium Chloride 0.9% 100 ML IVPB SCH (17:15)
--- NOTE | 2020-05-18 17:58 | PRG ---
DATE OF SERVICE: 05/18/2020 REASON FOR CONSULTATION: Alcoholic hepatitis and cirrhosis. SUBJECTIVE: The patient had no acute events or problems overnight. He did have some mild tremulousness this morning, but it seems to resolve this afternoon. He also has had some more loose/diarrhea like bowel movements, but this was in association with administration of lactulose. Otherwise, he states that he has had some mild abdominal discomfort this morning, but resolved with having a bowel movement. Currently, he denies any nausea, vomiting, fevers, chills, hematemesis, melena, hematochezia, dysphagia, or odynophagia. OBJECTIVE: VITAL SIGNS: Temperature 98.2, pulse 84, blood pressure 130/62, respiratory rate 18, saturating 95% on room air. GENERAL: The patient was lying in bed, in no acute distress. Alert and oriented x4. CARDIOVASCULAR: Regular rate and rhythm. RESPIRATORY: Clear to auscultation bilaterally. ABDOMEN: Normoactive bowel sounds. Soft. Moderate abdominal distention. No tenderness to palpation. EXTREMITIES: Trace bilateral lower extremity edema, only in the feet. LABORATORY DATA: CBC with a white blood cell count of 10, hemoglobin 12.7, hematocrit 38.6, platelets 100. INR 1.8. Chemistry with a sodium of 124, potassium 3.4, chloride 91, CO2 of 20, BUN 53, creatinine 5.52, glucose 130, AST 307, ALT 113, alkaline phosphatase 166, total bilirubin 35.4. Calculated MELD score of 40. IMAGING DATA: No current GI imaging is available for review. ASSESSMENT AND PLAN: The patient is a 44-year-old male with past medical history of hyperlipidemia, hypertension, prior alcoholic hepatitis and cirrhosis, complicated by esophageal varices, now presenting with recurrent alcoholic hepatitis. Alcoholic hepatitis: The patient is presenting with a 2-week long history of general weakness/malaise with significantly elevated LFTs on admission, especially in terms of his INR, total bilirubin. However, with administration of oral vitamin K, his INR has significantly been reduced to 1.8 today, although he continues to have a very elevated total bilirubin and a calculated MELD score of 40. In addition to the above, the patient continues to have worsening renal function with a creatinine of 5.52 today, strongly concerning for the presence of hepatorenal syndrome. At this time, the patient is in critical condition when it comes to his liver with an estimated 90-day mortality greater than 70% at this time. Based on his unfunded status, recent drinking history (last drink was approximately 2 weeks ago), and probable presence of hepatorenal syndrome, the patient is likely not a transplant candidate. RECOMMENDATIONS: 1. Continue albumin administration 3 times daily. 2. Continue octreotide drip in light of possible hepatorenal syndrome. 3. Continue PPI daily. 4. We will increase the midodrine to 10 mg t.i.d. in light of possible hepatorenal syndrome. 5. Continue methylprednisolone 40 mg daily as part of treatment for alcoholic hepatitis. 6. We would defer to Nephrology Service for further recommendations regarding kidney injury/worsening renal function. 7. Given his worsening renal function, I would not recommend administration of diuretics for either ascites or lower extremity edema at this time. Given his significantly elevated MELD score of 40, his long-term prognosis is extremely poor. Consideration of evaluation for possible liver transplant should be taken now, but again, given his unfunded status, recent drinking history, and probable hepatorenal syndrome, he is not a very good candidate for this particular modality. We will continue to follow. Please call with any questions. Job ID: [id number]
[2020-05-18] MEDS: Cyanocobalamin (Vitamin B-12) 1,000 MCG TAB PO SCH (21:02)
[2020-05-18] MEDS: pyridOXINE 50 MG (B6) TAB PO SCH (21:03)
[2020-05-18 21:41] VITALS: BP 132/64; TEMP 98.1
--- NOTE | 2020-05-19 11:32 | DIS ---
DATE OF ADMISSION: 05/16/2020 DATE OF DISCHARGE: 05/18/2020 DISCHARGE DISPOSITION: [facility] in [place]. BRIEF HOSPITAL COURSE: The patient is a 44-year-old male with alcoholic cirrhosis with esophageal varices, presented to the emergency room on May 16, 2020, with generalized weakness along with yellow discoloration of his eyes and skin. Please refer to the history and physical for further details. His bilirubin on admission was around 30 with INR of 16 and creatinine of 2.2. His AST on admission was 465 with ALT of 156, alkaline phosphatase 236 with sodium of 126, potassium of 3.4. He was monitored on the telemetry unit. Coagulopathy was reversed with vitamin K. He also had significant ascites for which a paracentesis was done after correcting coagulopathy that was consistent with transudate. Approximately 1.6 L of yellow-colored fluid was removed on May 17, 2020. The fluid studies showed WBC of 306 with neutrophil of 20%, glucose of 124, albumin of 0.4, protein of less than 1. The patient was initially started on ceftriaxone along with octreotide and albumin. Later on, midodrine was added. After ruling out SBP, methylprednisolone 40 mg IV was started. He was also placed on thiamine, folic acid, and multivitamin along with alcohol withdrawal protocol. His last alcohol drink was more than 2 weeks ago per the patient's report. Patient's creatinine and bilirubin continued to get words. For this reason he will be transferred to tertiary care center for higher level of care. The report was given to the hospitalist and the lease analyst at [facility]. 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
== END 2020-05-18 23:26 | disposition short-term general hospital (02) | DRG 441 ==
LOC: ERS 12:43 → 2NO 16:14 → ONC 05-17 15:48
PROVIDERS: ADMIT Internal Medicine; ATTEND Internal Medicine
PROC: 0W9G3ZZ Drainage of Peritoneal Cavity, Percutaneous Approach (ICD-10-PCS; principal; 2020-05-17)
DX: K72.00 Acute and subacute hepatic failure without coma (principal); K76.7 Hepatorenal syndrome; N17.9 Acute kidney failure, unspecified; E87.1 Hypo-osmolality and hyponatremia; K76.6 Portal hypertension; D68.4 Acquired coagulation factor deficiency; Z68.41 Body mass index [BMI] 40.0-44.9, adult; K70.11 Alcoholic hepatitis with ascites; E87.6 Hypokalemia; K31.89 Other diseases of stomach and duodenum; E66.01 Morbid (severe) obesity due to excess calories; F10.20 Alcohol dependence, uncomplicated; K70.31 Alcoholic cirrhosis of liver with ascites; E78.5 Hyperlipidemia, unspecified; I10 Essential (primary) hypertension; Z79.899 Other long term (current) drug therapy
CPT/HCPCS: 36415; 49083; 71045; 76705; 76770; 80048; 80053; 80076; 81001; 82042; 82105; 82945; 83735; 84100; 84157; 85025; 85060; 85610; 86704; 86706; 86803; 87040; 87070; 87086; 87205; 87340; 87635; 89051; 90471; 90732; 93005; G0009; J0696; J2354; J2920; J3430; J3490; J7050; P9047; U0003

== ENCOUNTER 2020-05-29 16:57 | Inpatient (IN) | payer SELFPAY ==
[2020-05-29 17:45] LABS: INR-International Normal Ratio 2.3; Prothrombin Time 25.3 sec (12.0-14.7)
[2020-05-29 17:46] LABS: PTT 47.3 sec (22.9-36.1)
[2020-05-29 17:50] LABS: #Basophils 0.1 thou/uL (0.0-0.2); #Eosinphils 0.2 thou/uL (0.0-0.7); #Lymphocytes 1.2 thou/uL (1.20-3.40); #Neutrophils 14.7 thou/uL (1.40-6.50); %Basophils 0.4 % (0.0-1.0); %Eosinophils 1.4 % (0.0-10.0); %Lymphocytes 7.2 % (21.0-51.0); %Monocytes 5.8 % (0.0-10.0); %Neutrophils 85.3 % (42.0-75.0); Hemoglobin 12.6 g/dL (14.0-18.0); Mean Corpuscular Hemoglobin 41.1 pg (27.0-31.0); Mean Platelet Volume 11.1 fL (7.4-10.4); Platelet Count 102 thou/uL (130-400); RBC Distribution Width 17.2 % (11.5-14.5); Red Blood Cell (RBC) Count 3.06 mill/uL (4.70-6.10); White Blood Cell (WBC) Count 17.3 thou/uL (4.8-10.8)
[2020-05-29 18:02] LABS: Anisocytosis SLIGHT = 6-15 cells (100X) (0-5/hpf); MDiff Complete? YES; Macrocytosis MODERATE=16-30 cells (100X) (0-5/hpf); Platelet Morphology Comment Appears Decreased; Polychromasia SLIGHT = 2-3 cells (100X) (0-2/hpf); Target Cells SLIGHT = 2-5 cells (100X) (0-1/hpf)
[2020-05-29 18:25] LABS: Bilirubin, Total 41.4 mg/dL (0.2-1.2)
[2020-05-29 18:31] LABS: ALT (SGPT) 98 U/L (8-55); AST (SGOT) 204 U/L (5-34); Albumin 2.5 g/dL (3.5-5.0); Alkaline Phosphatase 251 U/L (40-110); Anion Gap 23 mmol/L (10-20); BUN (Urea Nitrogen) 112 mg/dL (8.9-20.6); CK (CPK) 21 U/L (30-200); Calc. Creatinine Clearance 0 mL/min (70-130); Calcium 8.6 mg/dL (7.8-10.44); Carbon Dioxide 16 mmol/L (22-29); Chloride 98 mmol/L (98-107); Estimated GFR-MDRD 4; Globulin 3.5 g/dL (2.4-3.5); Glucose 169 mg/dL (70-105); Lipase 313 U/L (8-78); Potassium 4.4 mmol/L (3.5-5.1); Sodium 133 mmol/L (136-145)
--- NOTE | 2020-05-29 19:07 | ULT ---
GALLBLADDER ULTRASOUND: 05/29/20 HISTORY: Jaundice. FINDINGS: The liver demonstrates heterogeneous echotexture without focal mass or intrahepatic ductal dilatation . There are shadowing gallstones best seen on the left lateral decubitus position. The gallbladder wa ll measures about 3-4 mm in thickness without pericholecystic fluid. The common duct measures 4 mm in diameter. The pancreas is not well visualized due to overlying bowel gas. The right kidney is unrema rkable. A small amount of free fluid is seen in the right upper quadrant consistent with ascites. There is hepatofugal flow in the main portal vein. IMPRESSION: 1. Findings are consistent with hepatocellular disease. 2. Cholelithiasis. 3. Hepatofugal flow in the main portal vein. 4. Small amount of ascites. POS: [facility]ZA
--- NOTE | 2020-05-29 20:22 | PDOC.HHP ---
Hospitalist HPI - History of Present Illness Jaundice, weakness History of Present Illness: Patient is a 44 year old male with PMH ESRD on HD (Dr Dias), alcoholic cirrhosis who presents to ED from Dr Dias's office for jaundice, weakness. Patient was discharged from [facility] yesterday, he was transferred there from this facility on 05/18 for hepatic and renal failure, he was initiated on HD, stayed in hospital for 1 week, they did not believe he was ready for discharge but he wanted to go home so left yesterday, went to see Dr Dias today and was noted to be severely jaundiced and weak and was referred to hospital. He had been given medications for home but had not yet started them. First HD session was tuesday (2 days ago). Patient reports only change today is worsening of jaundice and slightly lower BP at home. Here, patient labs concerning for advanced liver failure with bilirubin 41, metabolic acidosis, numerous other abnormalities. MELD calculated at 40. Vitals with low normal BPs, lactic acid normal, patient denies fever/abdominal pain/shortness of breath/chest pain/confusion, denies bleeding or melena per mouth or anus. US abdomen performed and showed cholelithiasis, hepatocellular disease, small amount ascites. Patient to be admitted for further workup and care. Hospitalist ROS - Review of Systems Constitutional: reports: weakness, malaise, other (jaundice). denies: fever, chills, sweats Eyes: denies: pain, vision change, conjunctivae inflammation, eyelid inflammation, redness, other ENT: denies: ear pain, ear discharge, nose pain, nose discharge, nose congesti on, mouth pain, mouth swelling, throat pain, throat swelling, other Respiratory: denies: cough, dry, shortness of breath, hemoptysis, SOB with excertion, pleuritic pain, sputum, wheezing, other Cardiovascular: denies: chest pain, palpitations, orthopnea, paroxysmal noc. dyspnea, edema, light headedness, other Gastrointestinal: denies: nausea, vomiting, abdominal pain, diarrhea, constipation, melena, hematochezia, other Genitourinary: denies: dysuria, frequency, incontinence, hematuria, retention, other Musculoskeletal: denies: neck pain, shoulder pain, arm pain, back pain, hand pain, leg pain, foot pain, other Skin: denies: rash, lesions, koby, bruising, other Neurological: denies: weakness, numbness, incoordination, change in speech, confusion, seizures, other All other systems reviewed; all pertinent +/- noted in HPI/Subj - Medication Medications: most recent known medication list reviewed, see admission documents for list. Hospitalist History - Past Medical History Other Medical History: alcoholic cirrhosis ESRD HTN HLD GERD - Past Surgical History Past Surgical History: reports: Hernia Repair - Family History Family History: reports: no pertinent history - Social History Smoking Status: Never smoker Alcohol: reports: None Drugs: reports: none - Exam General Appearance: NAD, awake alert, ill appearing Eye: PERRL, anicteric sclera ENT: normocephalic atraumatic, no oropharyngeal lesions, moist mucosa Neck: supple, symmetric, no JVD, no thyromegaly, no lymphadenopathy, no carotid bruit Heart: RRR, no murmur, no gallops, no rubs, normal peripheral pulses Respiratory: CTAB, no wheezes, no rales, no ronchi, normal chest expansion, no tachypnea, normal percussion Gastrointestinal: soft, non-tender, normal bowel sounds, no palpable masses, no hepatomegaly, no splenomegaly, no bruit, distended Gastrointestinal - other findings: ascites Extremities: no cyanosis, no clubbing, no edema Skin: normal turgor, no lesions, no rashes Skin - other findings: jaundice Neurological: cranial nerve grossly intact, normal sensation to touch, no weakness, no focal deficits, no new deficit Neurological - other findings: no asterixis Musculoskeletal: normal tone, normal strength, no muscle wasting Psychiatric: normal affect, normal behavior, A&O x 3 Hospitalist Results - Labs Result Diagrams: 05/29/20 17:22 05/29/20 17:22 Lab results: WBC 17.3 thou/uL (4.8-10.8) H 05/29/20 17:22 Hgb 12.6 g/dL (14.0-18.0) L 05/29/20 17:22 Hct 37.1 % (42.0-52.0) L 05/29/20 17:22 MCV 121.0 fL (78.0-98.0) H 05/29/20 17:22 Plt Count 102 thou/uL (130-400) L 05/29/20 17:22 Neutrophils % 85.3 % (42.0-75.0) H 05/29/20 17:22 Sodium 133 mmol/L (136-145) L 05/29/20 17:22 Potassium 4.4 mmol/L (3.5-5.1) 05/29/20 17:22 Chloride 98 mmol/L (98-107) 05/29/20 17:22 Carbon Dioxide 16 mmol/L (22-29) L 05/29/20 17:22 BUN 112 mg/dL (8.9-20.6) H 05/29/20 17:22 Creatinine 12.32 mg/dL (0.7-1.3) H 05/29/20 17:22 Glucose 169 mg/dL (70-105) H 05/29/20 17:22 Lactic Acid 1.0 mmol/L (0.5-2.2) 05/29/20 18:52 Calcium 8.6 mg/dL (7.8-10.44) 05/29/20 17:22 Total Bilirubin 41.4 mg/dL (0.2-1.2) H 05/29/20 17:22 AST 204 U/L (5-34) H 05/29/20 17:22 ALT 98 U/L (8-55) H 05/29/20 17:22 Alkaline Phosphatase 251 U/L (40-110) H 05/29/20 17:22 Creatine Kinase 21 U/L (30-200) L 05/29/20 17:22 Troponin I Less than 0.010 ng/mL (< 0.028) 05/29/20 17:22 Serum Total Protein 6.0 g/dL (6.0-8.3) 05/29/20 17:22 Albumin 2.5 g/dL (3.5-5.0) L 05/29/20 17:22 Lipase 313 U/L (8-78) H 05/29/20 17:22 Additional comment: VITAL SIGNS Magdalena May 29, 2020 17:52 EUNICE [place], Jt BP: 107/52 MAP: 70 Pulse: 73 Resp: 18 Pain: 0 O2 sat: 100 on (Room Air) Time: 05/29/2020 17:52. all labs, imaging reports, ed documents reviewed by me. Hospitalist H&P A/P - Plan Plan: Patient is a 44 year old male with PMH ESRD on HD (Dr Dias), alcoholic cirrhosis who presents to ED from Dr Dias's office for jaundice, weakness. # ESRD on HD w/ Dr Dias # decompensated alcoholic cirrhosis # leukocytosis # anemia # thrombocytopenia # coagulopathy - due to cirrhosis # metabolic acidosis - due to ESRD # chronic alcoholism # HTN # HLD # portal hypertensive gastropathy - last EGD 2015 Patient discharged yesterday from [facility] after being initated on HD, today in clinic noted jaundiced and sent to ED, found to be in liver failure w/ bilirubin 41, MELD is 40 calculated, estimating a 70% mortality in next 3 months. No obvious explanation for decompensation, will continue with sepsis workup and monitor closely as inpatient - admit to floor - consult nephrology, GI, palliative care - blood cultures/diagnostic paracentesis ordered, hold empiric ABX for now - follow up ammonia, UA - trend labs daily - continue midodrine, thiamine, folate, PPI - prognosis guarded - DVT ppx heparin, monitor platelets # DVT/GI ppx full code, palliative care consult for goals of care discussion
[2020-05-29] MEDS ORDERED: cloNIDine 0.1 MG TAB PO PRN (20:25)
[2020-05-29] MEDS ORDERED: Ondansetron PF 4 MG/2 ML Vial IVP PRN (20:25)
[2020-05-29] MEDS ORDERED: Promethazine HCl 12.5 MG in Sodium Chloride 0.9% 50 ML IVPB PRN (20:25)
[2020-05-29] MEDS ORDERED: Acetaminophen 325 MG TAB PO PRN (20:25)
[2020-05-29] MEDS ORDERED: Guaifenesin DM 100-10/5 ML UDCUP PO PRN (20:25)
[2020-05-29] MEDS ORDERED: HYDROcodone/Acetaminophen 5/325 mg Tablet PO PRN (20:25)
[2020-05-29] MEDS ORDERED: Labetalol HCl 100 MG/20 ML VIAL SLOW IVP PRN (20:25)
[2020-05-29] MEDS ORDERED: hydrALAZINE 20 MG/ML VIAL SLOW IVP PRN (20:25)
[2020-05-29] MEDS ORDERED: Electrolyte Replacement Protoc 1 EACH EACH FS SCH (20:30)
[2020-05-29 21:38] LABS: Bilirubin, Total 42.1 mg/dL (0.2-1.2)
[2020-05-29 21:47] LABS: Bilirubin, Direct Greater than 10.0 mg/dL (0.1-0.3)
[2020-05-29] MEDS ORDERED: Albumin 25% 25 GM/100 ML BOT IVPB SCH (22:00)
[2020-05-29 22:12] VITALS: BMI 43.2
[2020-05-29] MEDS: Midodrine HCl 5 MG TAB PO SCH (22:38)
[2020-05-29] MEDS: Heparin 5,000 UNITS/ML VIAL SC SCH (22:39)
[2020-05-30 04:57] LABS: #Basophils 0.1 thou/uL (0.0-0.2); #Eosinphils 0.3 thou/uL (0.0-0.7); #Lymphocytes 1.5 thou/uL (1.20-3.40); #Monocytes 0.8 thou/uL (0.11-0.59); #Neutrophils 10.3 thou/uL (1.40-6.50); %Basophils 0.7 % (0.0-1.0); %Lymphocytes 11.3 % (21.0-51.0); %Monocytes 6.4 % (0.0-10.0); %Neutrophils 79.7 % (42.0-75.0); Hemoglobin 11.3 g/dL (14.0-18.0); Mean Corpuscular Hemoglobin 39.8 pg (27.0-31.0); Mean Platelet Volume 11.3 fL (7.4-10.4); Platelet Count 76 thou/uL (130-400); RBC Distribution Width 17.2 % (11.5-14.5); Red Blood Cell (RBC) Count 2.83 mill/uL (4.70-6.10); White Blood Cell (WBC) Count 12.9 thou/uL (4.8-10.8)
[2020-05-30 05:00] LABS: INR-International Normal Ratio 2.4
[2020-05-30 05:33] LABS: ALT (SGPT) 81 U/L (8-55); AST (SGOT) 161 U/L (5-34); Albumin 2.6 g/dL (3.5-5.0); Alkaline Phosphatase 220 U/L (40-110); Anion Gap 23 mmol/L (10-20); BUN (Urea Nitrogen) 110 mg/dL (8.9-20.6); Bilirubin, Direct Greater than 10.0 mg/dL (0.1-0.3); Calc. Creatinine Clearance 14 mL/min (70-130); Calcium 8.7 mg/dL (7.8-10.44); Carbon Dioxide 16 mmol/L (22-29); Chloride 99 mmol/L (98-107); Estimated GFR-MDRD 4; Glucose 147 mg/dL (70-105); Magnesium 2.5 mg/dL (1.6-2.6); Potassium 4.2 mmol/L (3.5-5.1); Protein, Total 5.7 g/dL (6.0-8.3); Sodium 134 mmol/L (136-145)
[2020-05-30 05:37] LABS: Bilirubin, Total 40.8 mg/dL (0.2-1.2)
[2020-05-30 06:56] LABS: Bilirubin 3+ (Negative); Blood, Urine 1+ (Negative); Clarity Turbid (Clear); Glucose, Urine (Dipstick) Normal (Negative); Ketone, Urine Negative (Negative); Leukocyte Negative Leu/uL (Negative); Nitrite Negative (Negative); Protein, Urine (Dipstick) 30 mg/dL (Neg-Trace); RBC/HPF 0-3 HPF (0-3); Specific Gravity, Urine 1.016 (1.002-1.036); Squamous Epithelial 0-3 HPF (0-3); Urobilinogen Normal mg/dL (Less than 2); pH, Urine 5.5 (5.0-9.0)
[2020-05-30 07:01] LABS: Bacteria/HPF 2+ HPF (None Seen)
[2020-05-30 07:03] LABS: Urine Culture Reflex Yes Yes
[2020-05-30] MEDS ORDERED: Sodium Bicarbonate 2.5 MEQ/5 ML VIAL ONE (08:32)
[2020-05-30] MEDS ORDERED: Heparin 10,000 UNITS/ 10 ML VIAL ONE (09:20)
--- NOTE | 2020-05-30 09:29 | PDOC.HOSPP ---
- Subjective Encounter Date: 05/30/20 Encounter Time: 08:00 Subjective: no overnight events. this morning, weakness somewhat improved. Has no complaints - Objective Vital Signs & Weight: Vital Signs (12 hours) Temp Pulse Resp BP Pulse Ox 05/30/20 07:55 96.0 F L 72 16 114/55 L 97 05/30/20 03:45 97.4 F L 72 18 125/58 L 97 05/30/20 00:00 97.5 F L 73 20 120/56 L 96 05/29/20 21:58 97.6 F 73 20 120/58 L 98 05/29/20 21:50 97 Weight Weight 284 lb 8 oz I&O: 05/29/20 05/30/20 05/31/20 06:59 06:59 06:59 Intake Total 100 Output Total 25 Balance 75 Result Diagrams: 05/30/20 04:11 05/30/20 04:11 Hospitalist ROS - Review of Systems Constitutional: denies: chills, sweats Respiratory: denies: shortness of breath Cardiovascular: denies: chest pain, palpitations, orthopnea Gastrointestinal: denies: abdominal pain, diarrhea - Medication Medications: Active Medications Generic Name Dose Route Start Last Admin Trade Name Freq PRN Reason Stop Dose Admin Heparin Sodium (Porcine) 5,000 units 05/29/20 21:00 05/29/20 22:39 Heparin 5,000 Units/Ml Vial SC 5,000 units BID PARKER Administration Midodrine 10 mg 05/29/20 21:00 05/29/20 22:38 Midodrine Hcl 5 Mg Tab PO 10 mg TID PARKER Administration - Exam General Appearance: NAD, awake alert Eye: PERRL, scleral icterus ENT: normocephalic atraumatic, moist mucosa Neck: no JVD Heart: RRR, no murmur, no gallops, no rubs Heart - other findings: RU thorax with dialysis cath oozing blood Respiratory: CTAB, no wheezes, no rales, no ronchi Gastrointestinal: soft, non-tender, normal bowel sounds Gastrointestinal - other findings: shifting dullness Extremities: 1+ LE edema Psychiatric: normal affect, normal behavior, A&O x 3 Hosp A/P - Plan Patient is a 44 year old male with PMH ESRD on HD (Dr Dias), alcoholic cirrhosis who presents to ED from Dr Dias's office for jaundice, weakness. # ESRD on HD w/ Dr Dias # decompensated alcoholic cirrhosis # leukocytosis # anemia # thrombocytopenia # coagulopathy - due to cirrhosis # metabolic acidosis - due to ESRD # chronic alcoholism # HTN # HLD # portal hypertensive gastropathy - last EGD 2015 Cirrhosis -endorses alcohol abstinence for past month -may be candidate for liver transplant; defer to GI -FLOR/CKD - may be due to hepatorenal syndrome - currently on midodrine, defer octerotide and albumin to nephrology, GI; on HD as per nephrology # DVT/GI ppx full code, palliative care consult for goals of care discussion
[2020-05-30] MEDS: Midodrine HCl 5 MG TAB PO SCH ×3 (09:51→21:15)
[2020-05-30] MEDS: Folic Acid 1 MG TAB PO SCH (09:52)
[2020-05-30] MEDS: Thiamine 100 MG TAB PO SCH (09:52)
[2020-05-30] MEDS: Heparin 5,000 UNITS/ML VIAL SC SCH ×2 (09:53→21:14)
--- NOTE | 2020-05-30 10:08 | ULT ---
Exam: Ultrasound guided paracentesis HISTORY: Ascites COMPARISON: 05/17/2020 FINDINGS: Successful ultrasound-guided paracentesis. Total of 20 cc of dark yellow color ascites was aspirated. TECHNIQUE: Consent obtained reformatory ultrasound-guided paracentesis. Left lower quadrantwas deemed appropriate. Skin was prepped and draped in a sterile fashion. 1% lidocaine, buffered with sodium bicarbonate was used for local anesthesia. Under ultrasound guidance, a 5 [place] 7 cm Pre[employer] Medical catheter i s advanced in the peritoneal space. A total of 20 cc of dark yellow color ascites was aspirated. No immediate or postprocedural complications IMPRESSION: Successful ultrasound-guided paracentesis.
[2020-05-30] MEDS ORDERED: Tuberculin PPD 0.1 ML VIAL I-DERMAL SCH ×2 (10:30→13:00)
--- NOTE | 2020-05-30 10:50 | CON ---
DATE OF CONSULTATION: 05/30/2020 CONSULTING PHYSICIAN: Dr. Bradford. REASON FOR CONSULTATION: End-stage renal disease evaluation and care. REASON FOR ADMISSION: Jaundice, weakness. HISTORY OF PRESENT ILLNESS: This is a 44-year-old male with a history of cirrhosis and now end-stage renal disease, was recently admitted to our hospital and transferred to [facility] for higher level of care. Actually, he was not ready to be discharged, but he came home to get care closer to home. He had one session of dialysis after catheter placement. No fever or chills. No nausea or vomiting. PAST MEDICAL HISTORY: Positive for alcoholic cirrhosis, CKD, hypertension, hyperlipidemia, GERD. PAST SURGICAL HISTORY: Hernia repair. HOME MEDICATIONS: Reviewed. ALLERGIES: NO KNOWN DRUG ALLERGIES. SOCIAL HISTORY: No smoking. History of alcohol abuse present. FAMILY HISTORY: No history of any kidney disease. REVIEW OF SYSTEMS: CONSTITUTIONAL: Negative for weight loss or gain, ability to conduct usual activities. SKIN: Negative for rash, itching. EYES: Negative for double vision, pain. ENT/MOUTH: Negative for nose bleeding, neck stiffness, pain, tenderness. CARDIOVASCULAR: Negative for palpitations, dyspnea on exertion, orthopnea. RESPIRATORY: Negative for shortness of breath, wheezing, cough, hemoptysis, fever or night sweats. GASTROINTESTINAL: Negative for poor appetite, abdominal pain, heartburn, nausea, vomiting, constipation, or diarrhea. GENITOURINARY: Negative for urgency, frequency, dysuria, nocturia. MUSCULOSKELETAL: Negative for pain, swelling. NEUROLOGIC/PSYCHIATRIC: Negative for anxiety, depression. ALLERGY/IMMUNOLOGIC: Negative for skin rash, bleeding tendency. PHYSICAL EXAMINATION: GENERAL: Reveals a well-built male, in no apparent distress. VITAL SIGNS: Temperature 96.0, pulse 72, respirations 16, blood pressure 114/55. HEENT: Atraumatic and normocephalic. Oral mucosa moist. NECK: Supple. CV: S1 and S2. Rate and rhythm regular. RESPIRATORY: Clear. GI: Abdomen is soft. MUSCULOSKELETAL: 1+ edema. DERMATOLOGIC: Denies skin rash. NEUROLOGIC: Alert and awake. PSYCHIATRIC: Normal mood and affect. LABORATORY DATA: Hemoglobin is 11.3. Potassium 4.2, BUN is 110, creatinine is 12.3. ASSESSMENT AND PLAN: 1. End-stage renal disease. Plan to have dialysis today for 3 hours. 2. we will remove fluid. 3. Acidosis. We will have dialysis. 4. Azotemia. 5. Hypoalbuminemia. 6. Edema, controlled. 7. Ascites. 8. Anemia of chronic disease. 9. Alcoholic cirrhosis. 10. Hepatorenal syndrome. Plan to have dialysis as tolerated. The patient is at high risk for complications. We will follow. Thank you for your consult. Job ID: [id number]
[2020-05-30 10:51] LABS: HBSAB Concentration Less than 8.00 mIU/mL; HBSAg Index 0.17 S/CO (0-0.99); Hep B Core Total Ab Non-Reactive (NonReactive); Hep B Core Total Index 0.12 S/CO (0-0.79); Hep B Surf AB Non-Reactive (NonReactive); Hep B Surf Ag Non-Reactive S/CO (NonReactive); Hep C IgG Ab Non-Reactive (NonReactive); Hep C Index 0.23 S/CO (0-0.79)
[2020-05-30 11:14] LABS: BF Color Yellow; Body Fluid Source Ascites Body Fluid; Clarity Hazy (Clear); RBC Count-Automated (BF) 453 /cu.mm; Tube # EDTA; WBC/Nucleated-Auto (BF) 170 uL
[2020-05-30 11:24] LABS: BF Segmented Neutrophils 29 %; Cell Count Non Hematic 56 %; Lymphocytes 15 %
[2020-05-31 05:23] LABS: INR-International Normal Ratio 2.6; Prothrombin Time 27.3 sec (12.0-14.7)
[2020-05-31 05:30] LABS: #Basophils 0.1 thou/uL (0.0-0.2); #Eosinphils 0.3 thou/uL (0.0-0.7); #Lymphocytes 1.1 thou/uL (1.20-3.40); #Monocytes 0.8 thou/uL (0.11-0.59); #Neutrophils 9.1 thou/uL (1.40-6.50); %Basophils 0.7 % (0.0-1.0); %Eosinophils 2.3 % (0.0-10.0); %Lymphocytes 9.6 % (21.0-51.0); %Monocytes 6.8 % (0.0-10.0); %Neutrophils 80.6 % (42.0-75.0); Hemoglobin 10.7 g/dL (14.0-18.0); Mean Corpuscular HGB CONC 32.4 g/dL (32.0-36.0); Mean Platelet Volume 11.7 fL (7.4-10.4); Platelet Count 75 thou/uL (130-400); Red Blood Cell (RBC) Count 2.76 mill/uL (4.70-6.10); White Blood Cell (WBC) Count 11.2 thou/uL (4.8-10.8)
[2020-05-31 05:50] LABS: ALT (SGPT) 77 U/L (8-55); AST (SGOT) 155 U/L (5-34); Albumin 2.3 g/dL (3.5-5.0); Alkaline Phosphatase 206 U/L (40-110); Anion Gap 18 mmol/L (10-20); BUN (Urea Nitrogen) 71 mg/dL (8.9-20.6); Bilirubin, Total 38.2 mg/dL (0.2-1.2); Calc. Creatinine Clearance 18 mL/min (70-130); Calcium 8.4 mg/dL (7.8-10.44); Carbon Dioxide 21 mmol/L (22-29); Chloride 99 mmol/L (98-107); Estimated GFR-MDRD 6; Glucose 116 mg/dL (70-105); Magnesium 2.2 mg/dL (1.6-2.6); Protein, Total 5.5 g/dL (6.0-8.3); Sodium 134 mmol/L (136-145)
[2020-05-31 06:01] LABS: Bilirubin, Direct Greater than 20.0 mg/dL (0.1-0.3)
[2020-05-31] MEDS ORDERED: Furosemide 40 MG TAB PO SCH (07:30)
[2020-05-31] MEDS ORDERED: Spironolactone 100 MG TAB PO SCH (08:00)
[2020-05-31] MEDS: Folic Acid 1 MG TAB PO SCH (08:56)
[2020-05-31] MEDS: Midodrine HCl 5 MG TAB PO SCH ×3 (08:56→20:15)
[2020-05-31] MEDS: Thiamine 100 MG TAB PO SCH (08:56)
[2020-05-31] MEDS: Heparin 5,000 UNITS/ML VIAL SC SCH ×2 (09:00→20:15)
--- NOTE | 2020-05-31 11:18 | PRG ---
DATE OF SERVICE: 05/31/2020 SUBJECTIVE: Patient was seen and examined at bedside and overnight events noted. Patient denies any shortness of breath or chest pain or palpitation. No history of nausea or vomiting or diarrhea or fever or chills or cramps. OBJECTIVE: GENERAL: This is a well-built male, in no apparent distress. VITAL SIGNS: Temperature 97.7, pulse 75, blood pressure 97/52. HEENT: Atraumatic, normocephalic. Oral mucosa is moist. Scleral icterus present. NECK: Supple. CARDIOVASCULAR: S1, S2 heard. Rate and rhythm regular. RESPIRATORY: Clear to auscultation. GASTROINTESTINAL: Abdomen is soft. MUSCULOSKELETAL: No tenderness. No edema. DERMATOLOGIC: No skin rash. NEUROLOGIC: Alert and awake and oriented x3. No focal neurologic deficits. Moving all the extremities. PSYCHIATRIC: Mood and affect normal. SKIN: Icterus present. LABORATORY DATA: Potassium 4.0, BUN is 71, creatinine is 9.3. ASSESSMENT AND PLAN: 1. End-stage renal disease. Continue dialysis as tolerated. We will dialysis Tuesday, Tuesday, and Tuesday. 2. hepatorenal syndrome. 3. Ascites. 4. Edema. 5. Azotemia. 6. Alcoholic cirrhosis. Labs are better. Continue dialysis as tolerated. Job ID: [id number]
--- NOTE | 2020-05-31 12:56 | EKG ---
Test Reason : Blood Pressure : / mmHG Vent. Rate : 075 BPM Atrial Rate : 075 BPM P-R Int : 178 ms QRS Dur : 104 ms QT Int : 442 ms P-R-T Axes : 021 026 003 degrees QTc Int : 493 ms Normal sinus rhythm Inferior infarct , age undetermined Abnormal ECG Confirmed by STEPAN NARAYAN ([id number]), brands editor RADHA FITZGERALD ([id number]) on 05/31/2020 12:56:19 PM Referred By: Confirmed By:STEPAN Chaudhary
--- NOTE | 2020-05-31 15:33 | PDOC.HOSPP ---
- Subjective Encounter Date: 05/31/20 Subjective: The patient is complaining of generalized weakness. He is significantly jaundiced. No evidence of overt confusion at this time. - Objective Vital Signs & Weight: Vital Signs (12 hours) Temp Pulse Resp BP Pulse Ox 05/31/20 12:04 97.6 F 69 15 110/52 L 95 05/31/20 08:50 97.7 F 75 16 97/52 L 97 05/31/20 08:00 97 05/31/20 04:00 97.4 F L 71 12 102/50 L 95 Weight Weight 282 lb 8 oz I&O: 05/30/20 05/31/20 06/01/20 06:59 06:59 06:59 Intake Total 950 Output Total 625 Balance 325 Result Diagrams: 05/31/20 04:34 05/31/20 04:34 Hospitalist ROS - Medication Medications: Active Medications Generic Name Dose Route Start Last Admin Trade Name Freq PRN Reason Stop Dose Admin Folic Acid 1 mg 05/30/20 09:00 05/31/20 08:56 Folic Acid 1 Mg Tab PO 1 mg DAILY PARKER Administration Heparin Sodium (Porcine) 5,000 units 05/29/20 21:00 05/31/20 09:00 Heparin 5,000 Units/Ml Vial SC Not Given BID PARKER Lactulose 20 gm 05/30/20 09:00 05/31/20 08:56 Lactulose 20 Gm/30 Ml Udcup PO 20 gm DAILY PARKER Administration Midodrine 10 mg 05/29/20 21:00 05/31/20 08:56 Midodrine Hcl 5 Mg Tab PO 10 mg TID PARKER Administration Pantoprazole Sodium 40 mg 05/30/20 09:00 05/31/20 08:56 Pantoprazole 40 Mg Tab PO 40 mg DAILY PARKER Administration Thiamine HCl 100 mg 05/30/20 09:00 05/31/20 08:56 Thiamine 100 Mg Tab PO 100 mg DAILY PARKER Administration - Exam General Appearance: awake alert Neck: supple, no JVD Respiratory: normal chest expansion, no tachypnea Gastrointestinal: soft, non-tender, non-distended Neurological: cranial nerve grossly intact, no focal deficits Hosp A/P (1) Liver failure Status: Acute (2) End stage renal disease on dialysis Code(s): N18.6 - END STAGE RENAL DISEASE; Z99.2 - DEPENDENCE ON RENAL DIALYSIS Status: Acute (3) Hepatorenal syndrome Code(s): K76.7 - HEPATORENAL SYNDROME Status: Acute (4) Liver cirrhosis, alcoholic Code(s): K70.30 - ALCOHOLIC CIRRHOSIS OF LIVER WITHOUT ASCITES Status: Acute - Plan Acute liver failure on chronic cirrhosis due to alcoholism. The patient abstained from alcohol last month. He is significantly jaundiced with meld score of 40 corresponding to 3-month mortality of 71% and child class C liver disease. His prognosis is poor and his only hope for survival is a liver transplantation. We will connect with [facility] to see if that can be arranged. Continue dialysis per nephrology.
--- NOTE | 2020-05-31 15:44 | PDOC.BPN ---
- Brief Progress Note Encounter Date: 05/31/20 I discussed the case with the antisqueak worker who took care of the patient in [facility] in [place]. The patient is not a candidate for transplant due to lack of financial capability and insurance. Management will be supportive. His prognosis is poor. I will consult palliative care team.
--- NOTE | 2020-05-31 22:42 | CON ---
DATE OF CONSULTATION: 05/31/2020 REASON FOR CONSULTATION: Liver cirrhosis, ascites, deep jaundice. HISTORY OF PRESENT ILLNESS: Mr. Frankie Dalton is a very pleasant 44-year-old [place] male with history of alcohol abuse over the years. He has known liver cirrhosis and has stopped drinking approximately a month ago. He was hospitalized recently with deep jaundice and renal failure. He was seen by Dr. Saulo Fay. His MELD score and he was transferred to [facility] a week ago. The patient had a large volume paracentesis done at [facility] in [place]. Apparently, he had about 1.6 kg of fluid drained. The patient decided to come home and was seen by Dr. Dias a couple of days ago. He was found to be deeply jaundiced, had a bilirubin level of almost 40 mg. He was hospitalized because of the above reason. He has central line placement for dialysis and he underwent dialysis last night. From GI standpoint, he has no abdominal pain, no nausea, no vomiting. No hematemesis. No melena. Bowel movements are fairly regular. He had a diagnostic paracentesis yesterday. The fluid is negative for any spontaneous bacterial peritonitis. He is tolerating diet. At the present time he has no specific symptoms. Although he has had liver cirrhosis, he was still drinking until a month ago very heavily off and on. No relevant history. MEDICAL ILLNESS: 1. Hyperlipidemia. 2. Hypertension. 3. Alcoholic hepatitis/liver cirrhosis. 4. Esophageal banding in the past. PAST SURGICAL HISTORY: 1. Left inguinal hernia repair. 2. EGD and banding. 3. Paracentesis x3. ALLERGIES: NONE. SOCIAL HISTORY: He is unmarried. He does not smoke, but was drink alcohol heavily until a month ago. No drug abuse. FAMILY HISTORY: Step-father with colon cancer. REVIEW OF SYSTEMS: Ten-point system review: CONSTITUTIONAL: No fever, no chills. Had gained weight because of ascites recently. No history of any loss of weight. HEAD: No chronic headache. No dizziness. EYES: No diplopia. He is deeply jaundiced. No impaired vision. ENT: No hearing loss. No nose bleed. No sore throat. LUNGS: No chronic coughing, hemoptysis, dyspnea. CARDIOVASCULAR: No chest pain, no palpitation, dyspnea, orthopnea, PND. ABDOMEN: Not distended with ascites with no abdominal pain, nausea, vomiting. No melena. No rectal bleeding. : No dysuria, hematuria. MUSCULOSKELETAL: Occasional pain in the joints, especially back pain and knee pains. NEUROPSYCHIATRY: No depression, anxiety. PHYSICAL EXAMINATION: GENERAL: He is deeply jaundiced. He is awake, alert, communicative. He is oriented to time, place, and person. VITAL SIGNS: Afebrile, pulse is 69, blood pressure 110/52. NECK: Supple. CARDIOVASCULAR SYSTEM: Normal heart sounds. LUNGS: Clear to auscultation. ABDOMEN: Soft. Abdomen is markedly distended with ascites. Abdomen is nontender. No masses. EXTREMITIES: Reveal edema. LABORATORY DATA: CBC: WBC , hemoglobin 12.6, hematocrit 37.1, MCV 121, platelet count is 102,000, polymorphs 85, lymphocytes 7. PT is 27.3, INR 2.6. Chemistry panel: His BUN is 110, creatinine 12.35, on dialysis creatinine down to 9.39. Lytes are normal. Bilirubin today is 38.2, AST 155, ALT 77, alkaline phosphatase is 206, albumin 2.3. CLINICAL IMPRESSION: 1. A 44-year-old [place] male with liver cirrhosis from ascites. The patient had no signs of encephalopathy. He is not bleeding actively. The stools are normal in color. 2. Chronic kidney disease, on dialysis. RECOMMENDATION: From GI standpoint there is nothing much you can offer the patient. In the future, he probably needs liver transplant. Right now we will probably treat him symptomatically. I did talk to Mr. Dalton and explained to him that he should stop drinking completely. He is looking for some financial assistance to help him get through the situation and hopefully can have a liver transplant in the future. Job ID: [id number]
[2020-06-01 04:34] LABS: #Basophils 0.1 thou/uL (0.0-0.2); #Eosinphils 0.3 thou/uL (0.0-0.7); #Lymphocytes 1.3 thou/uL (1.20-3.40); #Monocytes 0.8 thou/uL (0.11-0.59); %Basophils 0.7 % (0.0-1.0); %Eosinophils 2.9 % (0.0-10.0); %Monocytes 7.1 % (0.0-10.0); %Neutrophils 78.3 % (42.0-75.0); Hemoglobin 11.1 g/dL (14.0-18.0); INR-International Normal Ratio 2.4; Mean Corpuscular HGB CONC 32.5 g/dL (32.0-36.0); Mean Corpuscular Hemoglobin 39.2 pg (27.0-31.0); Mean Platelet Volume 11.6 fL (7.4-10.4); Platelet Count 77 thou/uL (130-400); Prothrombin Time 25.6 sec (12.0-14.7); RBC Distribution Width 17.1 % (11.5-14.5); Red Blood Cell (RBC) Count 2.83 mill/uL (4.70-6.10); White Blood Cell (WBC) Count 11.5 thou/uL (4.8-10.8)
[2020-06-01 05:09] LABS: Bilirubin, Total 37.4 mg/dL (0.2-1.2)
[2020-06-01 05:56] LABS: ALT (SGPT) 70 U/L (8-55); AST (SGOT) 134 U/L (5-34); Albumin 2.3 g/dL (3.5-5.0); Alkaline Phosphatase 202 U/L (40-110); Anion Gap 20 mmol/L (10-20); BUN (Urea Nitrogen) 84 mg/dL (8.9-20.6); Bilirubin, Direct Greater than 20.0 mg/dL (0.1-0.3); Calc. Creatinine Clearance 15 mL/min (70-130); Calcium 8.4 mg/dL (7.8-10.44); Carbon Dioxide 18 mmol/L (22-29); Chloride 100 mmol/L (98-107); Estimated GFR-MDRD 5; Glucose 117 mg/dL (70-105); Magnesium 2.2 mg/dL (1.6-2.6); Potassium 3.8 mmol/L (3.5-5.1); Protein, Total 5.5 g/dL (6.0-8.3); Sodium 134 mmol/L (136-145)
[2020-06-01] MEDS: Folic Acid 1 MG TAB PO SCH (08:59)
[2020-06-01] MEDS: Thiamine 100 MG TAB PO SCH (08:59)
[2020-06-01] MEDS ORDERED: READ PPD TEST SITE PO SCH (09:00)
[2020-06-01] MEDS: Midodrine HCl 5 MG TAB PO SCH ×3 (09:01→21:48)
[2020-06-01] MEDS: Heparin 5,000 UNITS/ML VIAL SC SCH ×2 (09:02→21:48)
--- NOTE | 2020-06-01 13:05 | PRG ---
DATE OF SERVICE: 06/01/2020 SUBJECTIVE: Patient was seen and examined at bedside and overnight events noted. Patient denies any shortness of breath or chest pain or palpitation. No history of nausea or vomiting or diarrhea or fever or chills or cramps. OBJECTIVE: GENERAL: This is a well-built male, in no apparent distress. VITAL SIGNS: Temperature 97.6. Heart rate 74. Respiratory rate 14. Blood pressure 120/58. HEENT: Atraumatic, normocephalic. Oral mucosa is moist NECK: Supple. CARDIOVASCULAR: S1, S2 heard. Rate and rhythm regular. RESPIRATORY: Clear to auscultation. GASTROINTESTINAL: Abdomen is soft. MUSCULOSKELETAL: No tenderness. No edema. DERMATOLOGIC: No skin rash. NEUROLOGIC: Alert and awake and oriented X3. No focal neurologic deficits. Moving all the extremities. PSYCHIATRIC: Mood and affect normal. LABORATORY DATA: Potassium 3.8, sodium 134, BUN is 84, creatinine is 11.2. ASSESSMENT AND PLAN: 1. End-stage renal disease, on hemodialysis. Plan to have dialysis tomorrow. 2. Hepatorenal syndrome. 3. Ascites. 4. Anasarca. 5. Icterus. 6. Azotemia. 7. Alcoholic cirrhosis. 8. Mild hyponatremia. 9. Hypoalbuminemia. 10. Elevated liver enzymes. 11. Coagulopathy. No acute indication for dialysis today. We will plan for dialysis tomorrow. Job ID: [id number]
--- NOTE | 2020-06-01 13:27 | PDOC.HOSPP ---
- Subjective Encounter Date: 06/01/20 Subjective: No new complaints. - Objective Vital Signs & Weight: Vital Signs (12 hours) Temp Pulse Resp BP Pulse Ox 06/01/20 12:00 97.4 F L 71 15 118/58 L 95 06/01/20 07:43 97.6 F 74 14 120/58 L 96 06/01/20 03:39 97.2 F L 79 17 114/57 L 95 Weight Weight 282 lb 3.42 oz I&O: 05/31/20 06/01/20 06/02/20 06:59 06:59 06:59 Intake Total 950 1440 Output Total 625 100 Balance 325 1340 Result Diagrams: 06/01/20 04:18 06/01/20 04:18 Hospitalist ROS - Medication Medications: Active Medications Generic Name Dose Route Start Last Admin Trade Name Freq PRN Reason Stop Dose Admin Folic Acid 1 mg 05/30/20 09:00 06/01/20 08:59 Folic Acid 1 Mg Tab PO 1 mg DAILY PARKER Administration Heparin Sodium (Porcine) 5,000 units 05/29/20 21:00 06/01/20 09:02 Heparin 5,000 Units/Ml Vial SC Not Given BID PARKER Lactulose 20 gm 05/30/20 09:00 06/01/20 08:59 Lactulose 20 Gm/30 Ml Udcup PO 20 gm DAILY PARKER Administration Midodrine 10 mg 05/29/20 21:00 06/01/20 09:01 Midodrine Hcl 5 Mg Tab PO 10 mg TID PARKER Administration Pantoprazole Sodium 40 mg 05/30/20 09:00 06/01/20 08:59 Pantoprazole 40 Mg Tab PO 40 mg DAILY PAKRER Administration Thiamine HCl 100 mg 05/30/20 09:00 06/01/20 08:59 Thiamine 100 Mg Tab PO 100 mg DAILY PARKER Administration - Exam General Appearance: awake alert Eye: scleral icterus ENT: normocephalic atraumatic Neck: supple, no JVD Respiratory: normal chest expansion, no tachypnea Neurological: cranial nerve grossly intact, no focal deficits Psychiatric: A&O x 3 Hosp A/P (1) Liver failure Status: Acute (2) End stage renal disease on dialysis Code(s): N18.6 - END STAGE RENAL DISEASE; Z99.2 - DEPENDENCE ON RENAL DIALYSIS Status: Acute (3) Hepatorenal syndrome Code(s): K76.7 - HEPATORENAL SYNDROME Status: Acute (4) Liver cirrhosis, alcoholic Code(s): K70.30 - ALCOHOLIC CIRRHOSIS OF LIVER WITHOUT ASCITES Status: Acute - Plan Acute liver failure on chronic cirrhosis due to alcoholism. The patient abstained from alcohol last month. He is significantly jaundiced with meld score of 40 corresponding to 3-month mortality of 71% and child class C liver disease. His prognosis is poor and his only hope for survival is a liver transplantation. I was able to communicate with the java j2ee lead who [facility] Transplantation could not be done due to the patient's lack of financial means and insurance coverage. Consult case management and social sciences instructor to see what options we have for this patient.
--- NOTE | 2020-06-01 18:18 | PRG ---
DATE OF SERVICE: 06/01/2020 HISTORY: This is a 44-year-old Latin-English male with liver cirrhosis, alcohol abuse, and also has chronic kidney disease. He has had one dialysis on Tuesday. He is tolerating diet. He is awake, alert, and oriented to time, place, and person. He has no abdominal pain. No nausea or vomiting. He has no pallor. PHYSICAL EXAMINATION: GENERAL: He is deeply jaundiced. VITAL SIGNS: Afebrile, pulse is 75, and blood pressure 111/55. CARDIOVASCULAR: Normal heart sounds. LUNGS: Clear to auscultation. ABDOMEN: Markedly distended with ascites. Abdomen is nontender. No organomegaly. No masses. LABORATORY DATA: From today WBC 11,500, hemoglobin , hematocrit 35.1, MCV 121, and platelet count 77,000. Serum chemistries today; sodium 134, potassium 3.8, chloride 100, bicarb 18, BUN is 84, creatinine 7.27, bilirubin 37.4, and albumin is 2.3. RECOMMENDATION: 1. Continue supportive care. 2. Continue dialysis. 3. We will sign off from today has any problems, please call us back. Job ID: [id number]
--- NOTE | 2020-06-02 10:37 | PRG ---
DATE OF SERVICE: 06/02/2020 SUBJECTIVE: A 44-year-old gentleman, being seen for end-stage kidney disease. The patient denies any nausea, vomiting, or chest pain. PHYSICAL EXAMINATION: General: The patient is awake and alert. Vital Signs: Afebrile, pulse 81, breathing at 16, blood pressure 112/66. HEENT: Head normocephalic and atraumatic. Eyes intact, no ulcers. Nose intact, no ulcers. Ears intact, no ulcers. Neck: Supple. No JVD. Chest: Symmetrical and clear. Cardiovascular: Shows S1 and S2, no rub, no murmur. Gastrointestinal: Abdomen is soft, bowel sounds positive. Extremities: Show no edema or ulcers. Skin: Shows no rash or petechiae. Musculoskeletal: Shows no joint swelling or stiffness. Genitourinary: Shows no Najera or CVA tenderness. Neurologic: Motor intact. Cranial nerves intact. LABORATORY DATA: Reviewed. ASSESSMENT AND PLAN: 1. Stage 6 chronic kidney disease. Plan dialysis. 2. Hypertension, stable. 3. Anemia, stable. 4. Liver failure. Overall prognosis is very poor. Job ID: [id number]
[2020-06-02] MEDS: Folic Acid 1 MG TAB PO SCH (12:02)
[2020-06-02] MEDS: Thiamine 100 MG TAB PO SCH (12:03)
[2020-06-02] MEDS: Midodrine HCl 5 MG TAB PO SCH ×3 (12:04→21:10)
[2020-06-02] MEDS: Heparin 5,000 UNITS/ML VIAL SC SCH ×2 (12:10→19:00)
--- NOTE | 2020-06-02 14:56 | PDOC.HOSPP ---
- Subjective Encounter Date: 06/02/20 Subjective: The patient appears to be more lethargic today. - Objective Vital Signs & Weight: Vital Signs (12 hours) Temp Pulse Resp BP Pulse Ox 06/02/20 07:23 97.6 F 81 19 112/66 95 06/02/20 04:40 97.4 F L 79 16 100/53 L 96 Weight Weight 282 lb 3.42 oz I&O: 06/01/20 06/02/20 06/03/20 06:59 06:59 06:59 Intake Total 1440 560 Output Total 100 Balance 1340 560 Result Diagrams: 06/01/20 04:18 06/01/20 04:18 Hospitalist ROS - Medication Medications: Active Medications Generic Name Dose Route Start Last Admin Trade Name Keny PRN Reason Stop Dose Admin Folic Acid 1 mg 05/30/20 09:00 06/02/20 12:02 Folic Acid 1 Mg Tab PO 1 mg DAILY PARKER Administration Heparin Sodium (Porcine) 5,000 units 05/29/20 21:00 06/02/20 12:10 Heparin 5,000 Units/Ml Vial SC Not Given BID PARKER Lactulose 20 gm 05/30/20 09:00 06/02/20 12:03 Lactulose 20 Gm/30 Ml Udcup PO 20 gm DAILY PARKER Administration Midodrine 10 mg 05/29/20 21:00 06/02/20 12:04 Midodrine Hcl 5 Mg Tab PO 10 mg TID PARKER Administration Pantoprazole Sodium 40 mg 05/30/20 09:00 06/02/20 12:02 Pantoprazole 40 Mg Tab PO 40 mg DAILY PARKER Administration Thiamine HCl 100 mg 05/30/20 09:00 06/02/20 12:03 Thiamine 100 Mg Tab PO 100 mg DAILY PARKER Administration - Exam General Appearance: awake alert Neck: supple, no JVD Heart: RRR, no murmur, no gallops, no rubs, normal peripheral pulses Respiratory: normal chest expansion, no tachypnea Neurological: cranial nerve grossly intact, no new deficit Hosp A/P (1) Liver failure Status: Acute (2) End stage renal disease on dialysis Code(s): N18.6 - END STAGE RENAL DISEASE; Z99.2 - DEPENDENCE ON RENAL DIALYSIS Status: Acute (3) Hepatorenal syndrome Code(s): K76.7 - HEPATORENAL SYNDROME Status: Acute (4) Liver cirrhosis, alcoholic Code(s): K70.30 - ALCOHOLIC CIRRHOSIS OF LIVER WITHOUT ASCITES Status: Acute - Plan Acute liver failure on chronic cirrhosis due to alcoholism. The patient abstained from alcohol last month. He is significantly jaundiced with meld score of 40 corresponding to 3-month mortality of 71% and child class C liver disease. His prognosis is poor and his only hope for survival is a liver transplantation. I was able to communicate with the medical imaging technician who took care of the patient in [facility]. Transplantation could not be done due to the patient's lack of financial means and insurance coverage. Consult case management and social media community manager to see what options we have for this patient. We need to arrange for the patient's outpatient dialysis before able to discharge him. In the meantime continue current management.
[2020-06-03] MEDS: Midodrine HCl 5 MG TAB PO SCH ×3 (08:52→20:16)
[2020-06-03] MEDS: Folic Acid 1 MG TAB PO SCH (08:53)
[2020-06-03] MEDS: Heparin 5,000 UNITS/ML VIAL SC SCH (08:53)
[2020-06-03] MEDS: Thiamine 100 MG TAB PO SCH (08:53)
--- NOTE | 2020-06-03 11:44 | PRG ---
DATE OF SERVICE: 06/03/2020 SUBJECTIVE: A 44-year-old gentleman, being seen for end-stage renal disease. The patient denies any nausea, vomiting, or chest pain. OBJECTIVE: GENERAL: The patient is awake and alert. VITAL SIGNS: Afebrile, pulse 83, breathing at 16, blood pressure 104/54. HEENT: Head normocephalic and atraumatic. Eyes intact, no ulcers. Nose intact, no ulcers. Ears intact, no ulcers. NECK: Supple. No JVD. CHEST: Symmetrical and clear. CARDIOVASCULAR: Shows S1 and S2, no rub, no murmur. GASTROINTESTINAL: Abdomen is soft, bowel sounds positive. EXTREMITIES: Show no edema or ulcers. SKIN: Shows no rash or petechiae. MUSCULOSKELETAL: Shows no joint swelling or stiffness. GENITOURINARY: Shows no Najera or CVA tenderness. NEUROLOGIC: Motor intact. Cranial nerves intact. LABORATORY DATA: Reviewed. ASSESSMENT AND PLAN: 1. Stage 6 chronic kidney disease, plan dialysis. 2. Hypertension, stable. 3. Anemia, stable. Medication based on GFR appropriate. Overall prognosis is poor as the patient has multiorgan failure. Job ID: [id number]
--- NOTE | 2020-06-03 13:20 | PDOC.HOSPP ---
- Subjective Encounter Date: 06/03/20 Subjective: Patient is alert noted somewhat confused today. - Objective Vital Signs & Weight: Vital Signs (12 hours) Temp Pulse Resp BP BP Pulse Ox 06/03/20 11:58 97.9 F 77 11 L 110/52 L 96 06/03/20 07:05 98.3 F 83 11 L 93/53 L 95 06/03/20 04:35 97.8 F 76 14 104/54 L 95 Weight Weight 283 lb 1.176 oz I&O: 06/02/20 06/03/20 06/04/20 06:59 06:59 06:59 Intake Total 560 300 Output Total 1200 Balance 560 -900 Result Diagrams: 06/01/20 04:18 06/01/20 04:18 Hospitalist ROS - Medication Medications: Active Medications Generic Name Dose Route Start Last Admin Trade Name Freq PRN Reason Stop Dose Admin Folic Acid 1 mg 05/30/20 09:00 06/03/20 08:53 Folic Acid 1 Mg Tab PO 1 mg DAILY PARKER Administration Heparin Sodium (Porcine) 5,000 units 05/29/20 21:00 06/03/20 08:53 Heparin 5,000 Units/Ml Vial SC Not Given BID PARKER Midodrine 10 mg 05/29/20 21:00 06/03/20 08:52 Midodrine Hcl 5 Mg Tab PO 10 mg TID PARKER Administration Pantoprazole Sodium 40 mg 05/30/20 09:00 06/03/20 08:53 Pantoprazole 40 Mg Tab PO 40 mg DAILY PARKER Administration Thiamine HCl 100 mg 05/30/20 09:00 06/03/20 08:53 Thiamine 100 Mg Tab PO 100 mg DAILY PARKER Administration - Exam General Appearance: awake alert Eye: scleral icterus Neck: supple, no JVD Respiratory: CTAB, no wheezes, no rales, no ronchi, normal chest expansion Gastrointestinal: soft Neurological: cranial nerve grossly intact, no focal deficits Hosp A/P (1) Liver failure Status: Acute (2) End stage renal disease on dialysis Code(s): N18.6 - END STAGE RENAL DISEASE; Z99.2 - DEPENDENCE ON RENAL DIALYSIS Status: Acute (3) Hepatorenal syndrome Code(s): K76.7 - HEPATORENAL SYNDROME Status: Acute (4) Liver cirrhosis, alcoholic Code(s): K70.30 - ALCOHOLIC CIRRHOSIS OF LIVER WITHOUT ASCITES Status: Acute - Plan Acute liver failure on chronic cirrhosis due to alcoholism. The patient abstained from alcohol last month. He is significantly jaundiced with meld score of 40 corresponding to 3-month mortality of 71% and child class C liver disease. His prognosis is poor and his only hope for survival is a liver transplantation. I was able to communicate with the alarm security or surveillance monitor who took care of the patient in [facility]. Transplantation could not be done due to the patient's lack of financial means and insurance coverage. Consult case management and social work coordinator to see what options we have for this patient. We need to arrange for the patient's outpatient dialysis before able to discharge him. In the meantime continue current management. 06/03: The patient is more confused. I will increase the frequency of lactulose to 3 times a day as needed to achieve 2-3 bowel movements a day. He had one bowel movement yesterday.
[2020-06-04] MEDS: Midodrine HCl 5 MG TAB PO SCH ×3 (09:17→23:29)
[2020-06-04] MEDS: Thiamine 100 MG TAB PO SCH (09:18)
[2020-06-04] MEDS: Folic Acid 1 MG TAB PO SCH (09:18)
--- NOTE | 2020-06-04 09:27 | PRG ---
DATE OF SERVICE: 06/04/2020 SUBJECTIVE: A 44-year-old gentleman being seen for end-stage renal disease. The patient denies any nausea, vomiting, or chest pain. OBJECTIVE: General: The patient is awake and alert. Vital Signs: Afebrile, pulse 72, breathing at 16, blood pressure 101/51. HEENT: Head normocephalic and atraumatic. Eyes intact, no ulcers. Nose intact, no ulcers. Ears intact, no ulcers. Neck: Supple. No JVD. Chest: Symmetrical and clear. Cardiovascular: Shows S1 and S2, no rub, no murmur. Gastrointestinal: Abdomen is soft, bowel sounds positive. Extremities: Show no edema or ulcers. Skin: Shows no rash or petechiae. Musculoskeletal: Shows no joint swelling or stiffness. Genitourinary: Shows no Najera or CVA tenderness. Neurologic: Motor intact. Cranial nerves intact. LABORATORY DATA: Reviewed. ASSESSMENT AND PLAN: 1. Stage 6 chronic kidney disease. Continue dialysis. 2. Hypertension, stable. 3. Anemia, stable. 4. Medication based on GFR appropriate. Multiorgan failure. Job ID: [id number]
[2020-06-04] MEDS ORDERED: Heparin 10,000 UNITS/ 10 ML VIAL ONE (10:03)
[2020-06-04 10:45] LABS: #Basophils 0.1 thou/uL (0.0-0.2); #Eosinphils 0.4 thou/uL (0.0-0.7); #Lymphocytes 1.7 thou/uL (1.20-3.40); #Monocytes 1.2 thou/uL (0.11-0.59); #Neutrophils 9.9 thou/uL (1.40-6.50); %Basophils 0.8 % (0.0-1.0); %Eosinophils 3.1 % (0.0-10.0); %Lymphocytes 12.5 % (21.0-51.0); %Monocytes 8.7 % (0.0-10.0); Hemoglobin 10.6 g/dL (14.0-18.0); Mean Corpuscular HGB CONC 33.1 g/dL (32.0-36.0); Mean Corpuscular Hemoglobin 39.7 pg (27.0-31.0); Mean Platelet Volume 11.2 fL (7.4-10.4); Platelet Count 77 thou/uL (130-400); RBC Distribution Width 16.6 % (11.5-14.5); Red Blood Cell (RBC) Count 2.67 mill/uL (4.70-6.10); White Blood Cell (WBC) Count 13.2 thou/uL (4.8-10.8)
[2020-06-04 11:00] LABS: Anion Gap 19 mmol/L (10-20); BUN (Urea Nitrogen) 77 mg/dL (8.9-20.6); Calc. Creatinine Clearance 15 mL/min (70-130); Calcium 8.8 mg/dL (7.8-10.44); Carbon Dioxide 22 mmol/L (22-29); Chloride 98 mmol/L (98-107); Estimated GFR-MDRD 5; Glucose 91 mg/dL (70-105); Potassium 3.8 mmol/L (3.5-5.1); Sodium 135 mmol/L (136-145)
--- NOTE | 2020-06-04 14:29 | PDOC.HOSPP ---
- Subjective Encounter Date: 06/04/20 Subjective: The patient had 2 bowel movements today and yesterday after lactulose dose has been increased. Overall, he has lack of energy and lack of appetite. - Objective Vital Signs & Weight: Vital Signs (12 hours) Temp Pulse Resp BP Pulse Ox 06/04/20 12:12 98.0 F 83 18 100/51 L 94 L 06/04/20 07:23 97.4 F L 78 16 101/51 L 98 06/04/20 04:40 97.8 F 60 16 97/57 L 94 L Weight Weight 287 lb 7.724 oz I&O: 06/03/20 06/04/20 06/05/20 06:59 06:59 06:59 Intake Total 300 597 Output Total 1200 0 Balance -900 597 Result Diagrams: 06/04/20 10:04 06/04/20 10:04 Hospitalist ROS - Medication Medications: Active Medications Generic Name Dose Route Start Last Admin Trade Name Freq PRN Reason Stop Dose Admin Folic Acid 1 mg 05/30/20 09:00 06/04/20 09:18 Folic Acid 1 Mg Tab PO 1 mg DAILY PARKER Administration Lactulose 20 gm 06/03/20 15:00 06/04/20 09:18 Lactulose 20 Gm/30 Ml Udcup PO 20 gm TID PARKER Administration Midodrine 10 mg 05/29/20 21:00 06/04/20 09:17 Midodrine Hcl 5 Mg Tab PO 10 mg TID PARKER Administration Pantoprazole Sodium 40 mg 05/30/20 09:00 06/04/20 09:18 Pantoprazole 40 Mg Tab PO 40 mg DAILY PARKER Administration Thiamine HCl 100 mg 05/30/20 09:00 06/04/20 09:18 Thiamine 100 Mg Tab PO 100 mg DAILY PARKER Administration - Exam General Appearance: awake alert ENT: normocephalic atraumatic Neck: supple, no JVD Gastrointestinal: soft Neurological: cranial nerve grossly intact, no new deficit Hosp A/P (1) Liver failure Status: Acute (2) End stage renal disease on dialysis Code(s): N18.6 - END STAGE RENAL DISEASE; Z99.2 - DEPENDENCE ON RENAL DIALYSIS Status: Acute (3) Hepatorenal syndrome Code(s): K76.7 - HEPATORENAL SYNDROME Status: Acute (4) Liver cirrhosis, alcoholic Code(s): K70.30 - ALCOHOLIC CIRRHOSIS OF LIVER WITHOUT ASCITES Status: Acute - Plan Acute liver failure on chronic cirrhosis due to alcoholism. The patient abstained from alcohol last month. He is significantly jaundiced with meld score of 40 corresponding to 3-month mortality of 71% and child class C liver disease. His prognosis is poor and his only hope for survival is a liver transplantation. I was able to communicate with the bottling attendant who took care of the patient in [facility]. Transplantation could not be done due to the patient's lack of financial means and insurance coverage. Consult case management and social media executive to see what options we have for this patient. We need to arrange for the patient's outpatient dialysis before able to discharge him. In the meantime continue current management. The patient prognosis is extremely poor. Consult care to discuss hospice.
--- NOTE | 2020-06-04 16:44 | PDOC.PALPN ---
Palliative Progress Note - Subjective Receiving dialysis, withdrawn. Expressed fatigue/lack of appetite - Objective Vital Signs: Vital Signs - Most Recent Temp Pulse Resp BP Pulse Ox 97.6 F 64 16 106/91 H 98 06/04/20 15:58 06/04/20 15:58 06/04/20 15:58 06/04/20 15:58 06/04/20 15:58 - Physical Exam Constitutional: ill appearing HEENT: EOMI, moist MMs, scleral icterus Respiratory: no wheezing, unlabored breathing Cardiovascular: RRR Gastrointestinal: soft Deviation from normal: distended Genitourinary: continent Musculoskeletal: edema present Neurology: moves all 4 limbs, no focal deficits Skin: fragile Deviation from normal: Icteric Psychiatric: A&O x 3, flat affect - Assessment (1) Palliative care encounter Code(s): Z51.5 - ENCOUNTER FOR PALLIATIVE CARE Current Visit: Yes Status: Acute (2) End stage renal disease on dialysis Code(s): N18.6 - END STAGE RENAL DISEASE; Z99.2 - DEPENDENCE ON RENAL DIALYSIS Current Visit: Yes Status: Acute (3) Liver cirrhosis, alcoholic Code(s): K70.30 - ALCOHOLIC CIRRHOSIS OF LIVER WITHOUT ASCITES Current Visit: Yes Status: Acute - Plan Plan: Discussed patient desire to continue to attempt to seek a transplant. Discussed declining functional status and lack of resources that limit immediate options. Revisited that he was discharged from [facility] 05/28 after transfer from our facility. Hemodialysis was initiated and he requested to leave [facility] to transfer home, was too weak to remain in home setting and again sought care at the hospital after one day in independent home setting. Discussed possibility of hospice and quality of life with expected decline. His cousin is who helps with his care. Asked if we could revisit resuscitation status 06/05/2020 and discuss other considerations for discharge. Patient agreeable to revisit tomorrow, 06/05/2020 Please also refer to Palliative Care RN notes in note section [50] minutes spent on this encounter with >50% of the time in counseling and coordination of care. - ROS Constitutional: loss appetite, malaise, weakness ENT: other (Denies throat irritation, difficulity swallowing) Respiratory: shortness of breath Cardiology: edema, paroxysmal noc. dyspnea Gastrointestinal: other (denies nausea, vomiting) Genitourinary: other (Negative for dysuria, frequnency, hematuria) Musculoskeletal: other (Denies musculoskeletal pain) Neurological: other (intermittant lethargy) Skin: jaundice
[2020-06-05] MEDS: Folic Acid 1 MG TAB PO SCH (09:06)
[2020-06-05] MEDS: Thiamine 100 MG TAB PO SCH (09:06)
[2020-06-05] MEDS: Midodrine HCl 5 MG TAB PO SCH ×2 (09:06→15:24)
--- NOTE | 2020-06-05 11:39 | PDOC.FMACP ---
Advance Care Planning - Problem (1) Palliative care encounter Status: Acute Code(s): Z51.5 - ENCOUNTER FOR PALLIATIVE CARE (2) End stage renal disease on dialysis Status: Acute Code(s): N18.6 - END STAGE RENAL DISEASE; Z99.2 - DEPENDENCE ON RENAL DIALYSIS (3) Liver cirrhosis, alcoholic Status: Acute Code(s): K70.30 - ALCOHOLIC CIRRHOSIS OF LIVER WITHOUT ASCITES - Note Participants: patient, family, palliative care Summary: Palliative Care discussed Advanced Care Planning with Mr William and his cousin who is his primary caretaker grounds. The diagnosis, prognosis and goals of care were discussed. Appropriate forms and documentation to accomplish the goals of care were discussed. All questions were answered. Mr Dalton is electing to transition to the home setting with hospice. Completed OOHDNAR, he desires to remain with full resuscitation measures while in the hospital. Understanding of disease progression and after discharge that there will be no more further dialysis. Mr William is hopeful to return to a home setting with his cousin, play his guitar and enjoy meals with family. Communicated with Dr Molina, Dr Dias, and case management. Please also refer to Palliative Care notes in note section. Time Spent (mins): 45
--- NOTE | 2020-06-05 12:54 | PRG ---
DATE OF SERVICE: 06/05/2020 SUBJECTIVE: A 44-year-old gentleman, being seen for end-stage renal disease. The patient denies any nausea, vomiting, or chest pain. OBJECTIVE: PHYSICAL EXAMINATION: General: The patient is awake and alert. Vital Signs: Afebrile, pulse 85, breathing at 16, blood pressure . HEENT: Head normocephalic and atraumatic. Eyes intact, no ulcers. Nose intact, no ulcers. Ears intact, no ulcers. Neck: Supple. No JVD. Chest: Symmetrical and clear. Cardiovascular: Shows S1 and S2, no rub, no murmur. Gastrointestinal: Abdomen is soft, bowel sounds positive. Extremities: Show no edema or ulcers. Skin: Shows no rash or petechiae. Musculoskeletal: Shows no joint swelling or stiffness. Genitourinary: Shows no Najera or CVA tenderness. Neurologic: Motor intact. Cranial nerves intact. LABORATORY DATA: Reviewed. ASSESSMENT AND PLAN: 1. Stage 6 chronic kidney disease with liver failure. The patient will be going home on hospice and dialysis will be done per the patient's request. 2. Hypertension. 3. Anemia, stable. 4. Medication based on GFR appropriate. Job ID: [id number]
[2020-06-05 16:56] VITALS: TEMP 98.2
[2020-06-05 19:21] VITALS: BP 98/57
--- NOTE | 2020-06-06 07:01 | DIS ---
DATE OF ADMISSION: 05/29/2020 DATE OF DISCHARGE: 06/05/2020 DISCHARGE DIAGNOSES: 1. Liver failure. 2. Alcoholic liver cirrhosis. 3. End-stage renal disease. 4. Hepatorenal syndrome. DISCHARGE MEDICATIONS: 1. Lactulose 20 mg orally t.i.d. to maintain 2 to 3 bowel movements a day. 2. Midodrine 10 mg orally t.i.d. The rest of his home medications are unchanged. HISTORY OF PRESENT ILLNESS AND HOSPITAL COURSE: The patient is an unfortunate 44-year-old male with past medical history of alcoholic liver cirrhosis, who presented to the hospital with complaints of generalized weakness. The patient was found to be severely jaundiced in the ER. He is a dialysis patient with Dr. Dias. The patient was found to be in end-stage liver disease with evidence of liver failure. His MELD score was calculated at above 40. The patient apparently left AMA from [facility] prior to presentation as liver transplantation could not be performed due to financial issues and due to patient's history of alcoholism. The patient was managed symptomatically in the hospital and met with palliative care team and decision was made by the patient and his family to pursue hospice care. This will be arranged on discharge. Job ID: [id number] MTDD
== END 2020-06-05 19:59 | disposition hospice, home (50) | DRG 432 ==
LOC: ERS 16:57 → 2NO 19:52 → T4-A 06-04 22:40
PROVIDERS: ADMIT Internal Medicine; ATTEND Internal Medicine
PROC: 0W9G3ZZ Drainage of Peritoneal Cavity, Percutaneous Approach (ICD-10-PCS; principal; 2020-05-30)
PROC: 5A1D70Z Performance of Urinary Filtration, Intermittent, Less than 6 Hours Per Day (ICD-10-PCS; 2020-05-30)
DX: K70.31 Alcoholic cirrhosis of liver with ascites (principal); N18.6 End stage renal disease; K76.7 Hepatorenal syndrome; Z51.5 Encounter for palliative care; K76.6 Portal hypertension; E87.2 Acidosis; I12.0 Hypertensive chronic kidney disease with stage 5 chronic kidney disease or end stage renal disease; D68.4 Acquired coagulation factor deficiency; N17.9 Acute kidney failure, unspecified; E87.1 Hypo-osmolality and hyponatremia; E78.5 Hyperlipidemia, unspecified; K21.9 Gastro-esophageal reflux disease without esophagitis; F10.20 Alcohol dependence, uncomplicated; K31.89 Other diseases of stomach and duodenum; R82.71 Bacteriuria; D72.829 Elevated white blood cell count, unspecified; D69.6 Thrombocytopenia, unspecified; D63.1 Anemia in chronic kidney disease; E88.09 Other disorders of plasma-protein metabolism, not elsewhere classified; K70.40 Alcoholic hepatic failure without coma; R31.29 Other microscopic hematuria; Z79.899 Other long term (current) drug therapy; Z99.2 Dependence on renal dialysis
CPT/HCPCS: 36415; 49083; 76705; 80048; 80053; 80076; 81001; 82140; 82247; 82550; 83605; 83690; 83735; 84484; 85025; 85060; 85610; 85730; 86580; 86704; 86706; 86803; 87040; 87070; 87086; 87205; 87340; 89051; 90935; 93005; 96360; 96361; G0257; J1644; P9047